=== PATIENT | female | born 1975 | race Caucasian/White ===

== ENCOUNTER 2020-07-25 16:02 | Emergency (ER) | payer OTHER, SELFPAY ==
--- NOTE | ~2020-07-25 | XR_ITS ---
XR chest 1V portable DATE: 07/25/2020 16:57 INDICATION: Cough, shortness of breath, congestion, nausea, headache TECHNIQUE: Portable AP chest on 07/25/2020 at 1654 hours COMPARISON: None FINDINGS: There are patchy infiltrates in the mid and especially lower lung zones bilaterally. No pleural effusion or pulmonary vascular congestion or pneumothorax. Normal heart size. IMPRESSION: Patchy bilateral mid and lower lung infiltrates suggesting bilateral pneumonia Reviewed, dictated and finalized at location [facility]. IMPRESSION: Patchy bilateral mid and lower lung infiltrates suggesting bilatera l pneumonia
[2020-07-25 16:12] VITALS: BP 138/79; PULSE 91; RESP 20; TEMP 37.9; O2SAT 97
--- NOTE | 2020-07-25 16:30 | ED.GENADULT ---
HPI - General Adult General Chief complaint: Upper Respiratory Infection <Poncho Mobley PA-C - Last Filed: 07/25/20 18:46> Stated complaint: sick for week, cough, sob <DHARMESH Lui Last Filed: 07/25/20 18:46> Time Seen by Provider: 07/25/20 16:09 <DHARMESH Lui Last Filed: 07/25/20 18:46> Source: patient and family <DHARMESH Lui Last Filed: 07/25/20 18:46> Mode of arrival: ambulatory <DHARMESH Lui Last Filed: 07/25/20 18:46> Limitations: no limitations <DHARMESH Lui Last Filed: 07/25/20 18:46> History of Present Illness HPI narrative: Patient is a 45-year-old female who presents to emergency department for evaluation of cough for the last week is productive with pleuritic chest pain and headache that occurs with coughing has had congestion and rhinorrhea had had these symptoms earlier in the month was tested for COVID and was negative her symptoms improved and then have recurred over the last week patient denies any known sick contacts patient has not been seen for this illness in the last week patient denies any sick contacts as noted. Patient denies tobacco abuse. Patient notes she has also had some loose stools with some mild abdominal discomfort <DHARMESH Lui Last Filed: 07/25/20 18:46> Related Data Home medications: Home Medications Medication Instructions Recorded Confirmed bupropion HCl PO 11/19/19 diclofenac sodium PO 11/19/19 ergocalciferol (vitamin D2) 11/19/19 [Vitamin D2] furosemide 11/19/19 losartan 11/19/19 meloxicam 11/19/19 methocarbamol mg 11/19/19 naltrexone mg 11/19/19 naproxen 11/19/19 norgestimate-ethinyl estradiol tablet 11/19/19 [Sprintec (28)] omeprazole 11/19/19 tramadol mg 11/19/19 <DHARMESH Lui Last Filed: 07/25/20 18:46> Allergies/adverse reactions: Allergies Allergy/AdvReac Type Severity Reaction Status Date / Time No Known Allergies Allergy Unknown Verified 07/25/20 16:46 <Poncho Mobley PA-C - Last Filed: 07/25/20 18:46> Review of Systems Review of Systems: All systems reviewed & are unremarkable except as noted in HPI and below <Poncho Mobley PA-C - Last Filed: 07/25/20 18:46> [facility] Past Medical History Medical History: Medical History (Updated 07/25/20 @ 18:42 by Poncho Mobley PA-C) Alcohol abuse Obesity <Poncho Mobley PA-C - Last Filed: 07/25/20 18:46> Social History Social History: Social History Alcohol intake: current Gender identity (if verbalized by the patient): Female <Poncho Mobley PA-C - Last Filed: 07/25/20 18:46> Exam Narrative: Exam Narrative: GENERAL:ill-appearing, obese, and in no acute distress. HEAD: Normocephalic, atraumatic. EYES: PERRLA and EOMI. ENT: Nares clear, no rhinorrhea or epistaxis. Mucous membranes moist. Oropharynx without tonsillar hypertrophy exudate or other lesions. CHEST: Clear to auscultation. No respiratory distress. No wheezing but crackles noted in the bilateral lung bases HEART: Regular rate and rhythm. No murmur heard. Normal peripheral pulses. ABDOMEN: Soft, nontender, nondistended. EXTREMITIES: Normal range of motion. No edema. SKIN: Warm, dry, no rash. NEURO: No focal deficits. Alert and oriented x3. PSYCH: Normal mood and affect. <Poncho Mobley PA-C - Last Filed: 07/25/20 18:46> Course Course Emergency Course: Patient in the room at this time resting comfortably aware of case findings treatment plan and diagnosis. Attempts were made to get in touch with the patient's primary care for concern of elevated transaminases and hyperglycemia was unable to do so. Will discharge patient home with plan for the patient to contact primary care tomorrow. Patient advised to self quarantining until she has her COVID-19 test results. Patient will be sent home on
[2020-07-25] MEDS: SODIUM CHLORIDE 0.9% IV 1,000 ML 999 ML IV CONT ×2 (16:40→17:46)
[2020-07-25 16:45] LABS: Basophils Percent Auto 0.6 % (0.2-1.2); Eosinophils Absolute Auto 0.1 K/mm3 (0-0.3); Hemoglobin 12.2 g/dL (12.0-15.0); Immature Granulocyte Absolute 0.03 K/mm3 (0.00-0.031); Immature Granulocyte Percent A 0.6 % (0-0.5); Lymphocytes Percent Auto 24.2 % (18.3-44.2); Mean Corpuscular Volume 90.9 fl (80-100); Mean Platelet Volume 10.8 fl (7.4-10.4); Monocytes Absolute Auto 0.4 K/mm3 (0.1-0.6); Monocytes Percent Auto 8.1 % (2.6-8.5); Neutrophils Absolute Auto 3.2 K/mm3 (1.3-6.7); Neutrophils Percent Auto 65.5 % (45.5-73.1); Platelet Count Result 231 k/mm3 (150-375); Red Blood Count 4.07 M/mm3 (4.2-5.4); Red Cell Distribution Width 14.1 % (11.5-14.5)
[2020-07-25 17:04] LABS: Lactic Acid Reflex 1.4 mmol/L (0.7-2.1)
[2020-07-25 17:06] LABS: Alanine Aminotransferase 184 U/L (4-35); Albumin Level 3.9 g/dL (3.5-5.1); Alkaline Phosphatase 135 U/L (38-126); Anion Gap 12 mmol/L (8-16); Aspartate Amino Transferase 254 U/L (14-36); Bilirubin,Total 1.1 mg/dL (0.2-1.3); Blood Urea Nitrogen 3 mg/dL (7-17); CRP 3.5 mg/dL (<1.0); Calcium 8.8 mg/dL (8.4-10.2); Carbon Dioxide 24 mmol/L (22-30); Chloride 95 mmol/L (98-107); Estimated CRCL calculation 177 ml/min; Estimated Glomerular Filt Rate > 60; Glucose 280 mg/dL (65-105); Potassium 3.8 mmol/L (3.4-5.0); Sodium 131 mmol/L (137-145)
[2020-07-25 17:22] VITALS: BP 123/64; PULSE 83; RESP 20; O2SAT 97
[2020-07-25 17:33] LABS: Ethanol < 10 mg/dL (<10)
[2020-07-25 17:39] LABS: Hemoglobin A1C 9.8 % (<5.7)
--- NOTE | 2020-07-25 17:48 | PC.NURSE ---
Patient asked for urine. Patient states she is unable to provide sample at this time. Refused straight cath. Call light within reach. Will notify this RN when she is able to provide urine sample.
[2020-07-25] MEDS: KETOROLAC 30 MG/ML VIAL (*BKC) IV PUSH (18:14)
[2020-07-25 18:19] VITALS: BP 113/67; PULSE 75; RESP 18; TEMP 37.8; O2SAT 96
[2020-07-25 19:05] LABS: Amphetamine Screen Urine Negative (Negative); Barbiturate Screen Urine Negative (Negative); Benzodiazepines Screen Urine Negative (Negative); Cannabinoid Screen Urine Negative (Negative); Cocaine Screen Urine Negative (Negative); Methadone Screen Urine Negative (Negative); Opiate Screen Urine Negative (Negative); Phencyclidine Screen Urine Negative (Negative)
[2020-07-26 17:02] LABS: SARS-CoV-2 RNA PCR Positive
== END 2020-07-25 19:02 | disposition home or self-care (01) ==
PROVIDERS: Emergency Medicine Emergency Medical Services; Emergency Provider Emergency Medicine; PCP Physician Assistant
DX: U07.1 COVID-19 (principal); J12.89 Other viral pneumonia; R79.89 Other specified abnormal findings of blood chemistry; R73.9 Hyperglycemia, unspecified
CPT/HCPCS: 36415; 71045; 80053; 80307; 82728; 83036; 83605; 85025; 86140; 87040; 87635; 96361; 96374; 96375; 99284; C9803; J0131; J1885; J7030; U0003

== ENCOUNTER 2020-08-22 09:53 | Emergency (ER) | payer OTHER, SELFPAY ==
--- NOTE | 2020-08-22 10:01 | ED.GENADULT ---
HPI - General Adult General Chief complaint: Skin/Abscess/Foreign Body Stated complaint: possible insect bite Time Seen by Provider: 08/22/20 10:01 Source: patient Mode of arrival: ambulatory Limitations: no limitations History of Present Illness HPI narrative: 45-year-old female patient presents to the [facility] with complaints of an insect bite to the right side of her back for the past 2 days. Patient states it is been very itchy and states that it is painful when she tries to wear a bra. Patient states that she called off work today due to the fact she could not wear a bra due to the pain. Patient states she is also has another area to the left side of the insect bite that also has her concerned. Patient denies any fevers, body aches or chills. Denies any chest pain, shortness of breath. Patient states she has been using some PRID on the areas. Related Data Home Medications Medication Instructions Recorded Confirmed bupropion HCl PO 11/19/19 furosemide 11/19/19 losartan 11/19/19 naltrexone mg 11/19/19 norgestimate-ethinyl estradiol tablet 11/19/19 [Sprintec (28)] sitagliptin [Januvia] 100 mg DAILY 08/22/20 08/22/20 Allergies Allergy/AdvReac Type Severity Reaction Status Date / Time No Known Allergies Allergy Unknown Verified 08/22/20 10:08 Review of Systems Review of Systems: Narrative: CONSTITUTIONAL: Denies fever, chills, or sweats. EYES: Denies visual changes, redness, or discharge. ENT: Denies rhinorrhea, congestion, sore throat, or otalgia. CARDIOVASCULAR: Denies chest pain, palpitations, or edema. RESPIRATORY: Denies cough or dyspnea. GASTROINTESTINAL: Denies abdominal pain, nausea, vomiting, or diarrhea. GENITOURINARY: Denies dysuria or hematuria. SKIN: Denies rash or itching. Positive insect bite and wound to the right side of the back x2 days. MUSCULOSKELETAL: Denies back pain, joint pain, or myalgia. NEUROLOGIC: Denies headache, numbness, or weakness. PSYCHIATRIC: Denies anxiety or depression. [facility] Past Medical History Medical History (Updated 08/22/20 @ 10:20 by JUAN Mercer) Alcohol abuse Arthritis Guo's cyst Right knee GERD (gastroesophageal reflux disease) Hypertension Obesity Surgical History Surgical History (Updated 08/22/20 @ 10:20 by JUAN Mercer) History of History of tubal ligation Social History Social History Alcohol intake: current Gender identity (if verbalized by the patient): Female Comments At the time of my signature I agree with nursing past medical history, surgical, social, and family history. There is no relevant family history pertinent to the presenting complaint. Exam Narrative: Exam Narrative: GENERAL: Well-appearing, well-nourished, and in no acute distress. HEAD: Normocephalic, atraumatic. EYES: PERRLA and EOMI. ENT: Nares clear, no rhinorrhea or epistaxis. Mucous membranes moist. NECK: Supple. No lymphadenopathy CHEST: Clear to auscultation. No respiratory distress. HEART: Regular rate and rhythm. No murmur heard. Normal peripheral pulses. ABDOMEN: Soft, nontender, nondistended, normal active bowel sounds. EXTREMITIES: Normal range of motion. No edema. SKIN: Warm, dry, no rash. Patient has approximately 1.5 cm insect bite with a punctate abdifatah in the middle of some surrounding erythema. There is no warmth present. There is no discharge present. Patient also has what appears to be a sebaceous cyst that measures approximately 1 cm to the left side of the insect bite. There is no punctate meng noted. No warmth noted. No tenderness noted on palpation. NEURO: No focal deficits. Alert and oriented x3. Course Vital Signs Vital signs: Vital Signs Temperature 36.8 C 08/22/20 10:02 Pulse Rate 74 08/22/20 10:02 Respiratory Rate 16 08/22/20 10:02 Blood Pressure 165/82 H 08/22/20 10:02 Pulse Oximetry 100 08/22/20 10:02 Temperature
[2020-08-22 10:02] VITALS: BP 165/82; PULSE 74; RESP 16; TEMP 36.8; O2SAT 100
== END 2020-08-22 10:20 | disposition home or self-care (01) ==
PROVIDERS: Emergency Provider Nurse Practitioner Family; PCP Physician Assistant
DX: S20.461A Insect bite (nonvenomous) of right back wall of thorax, initial encounter (principal); W57.XXXA Bitten or stung by nonvenomous insect and other nonvenomous arthropods, initial encounter; L72.3 Sebaceous cyst; M19.90 Unspecified osteoarthritis, unspecified site; K21.9 Gastro-esophageal reflux disease without esophagitis; I10 Essential (primary) hypertension; E66.9 Obesity, unspecified; Z68.35 Body mass index [BMI] 35.0-35.9, adult
CPT/HCPCS: 99212; G0463

== ENCOUNTER 2020-09-13 10:29 | Emergency (ER) | payer OTHER, SELFPAY ==
[2020-09-13 10:38] VITALS: BP 149/82; PULSE 86; RESP 20; TEMP 37.4; O2SAT 100
[2020-09-13 10:39] VITALS: BP 149/82; PULSE 86; RESP 20; TEMP 37.4; O2SAT 100
--- NOTE | 2020-09-13 11:04 | ED.ABDPAIN ---
HPI - Abdominal Pain General Chief Complaint: Abdominal Pain Stated Complaint: Abdominal Pain Source: patient Mode of arrival: ambulatory History of Present Illness HPI narrative: This is a 45-year-old [place] female that presented today complaining of left lower quadrant pain. According to patient she was diagnosed with COVID-19 in July. she noted that in July CT was completed that indicated what she describes as cholecystitis(inflamed gallbladder). Patient notes that associated symptoms is chills she also had episodes of diarrhea overnight. Patient denies that the pain radiates .she does deny nausea and notes that she has been afraid to eat anything so she did not experience vomiting it and noted that sharp pain to her left lower quadrant patient did note that she had not at home and the pain was not relieved. [facility] patient been accepted by Shannan Suarez. The patient denies SOB, CP, palpitation, extremity numbness, lightheadedness, dizziness, constipation, , chills, or fever. Patient also date retested for COVID-19 2 weeks after testing positive. Second Covid was negative. Patient does have a colonoscopy with the EGD scheduled for September. MD elicited complaint: abdominal pain (Left lower quadrant) Pain Consistency: intermittent Location: LLQ Severity: severe Related Data Home Medications Medication Instructions Recorded Confirmed bupropion HCl 150 mg PO BID 11/19/19 08/22/20 furosemide 20 mg DAILY 11/19/19 08/22/20 losartan 50 mg DAILY 11/19/19 08/22/20 naltrexone 50 mg DAILY 11/19/19 08/22/20 norgestimate-ethinyl estradiol 1 tablet DAILY 11/19/19 08/22/20 [Sprintec (28)] sitagliptin [Januvia] 100 mg DAILY 08/22/20 08/22/20 gabapentin 09/13/20 naproxen 09/13/20 Allergies Allergy/AdvReac Type Severity Reaction Status Date / Time No Known Allergies Allergy Unknown Verified 08/22/20 10:08 Review of Systems Review of Systems: All systems reviewed & are unremarkable except as noted in HPI and below (10 point review system) [facility] Past Medical History Medical History (Updated 09/13/20 @ 10:58 by JOSELYN Mott) Alcohol abuse Arthritis Guo's cyst Right knee GERD (gastroesophageal reflux disease) Hypertension Obesity Surgical History Surgical History (Updated 08/22/20 @ 10:20 by JUAN Mercer) History of History of tubal ligation Social History Social History Alcohol intake: current Gender identity (if verbalized by the patient): Female Exam Const: Orientation/consciousness: patient oriented x3 HENMT: Head: normal to inspection Eyes: Pupils: Equal, round and reactive pupils present Neck: Neck: normal visual inspection Chest: Chest palpation & inspection: normal inspection of the chest Resp: Effort & Inspection: normal respiratory effort Cardio: Rate: regular rate Rhythm: regular rhythm GI: GI Palp: Yes Tenderness to palpation present (GI) (Left lower quadrant) and Yes Guarding due to palpation present (GI) Auscultation: normal bowel sounds : General: Yes no CVA tenderness Back/Spine/Pelvis: Back: no CVA tenderness Skin: General skin exam: normal color Neuro: General: patient oriented x3 Extrem: General: normal to inspection Course Course Emergency Course: Patient transferred to [place] ED. physician Dr. Suarez. Patient will be transported via personal vehicle by her Vital Signs Vital signs: Vital Signs Temperature 99.3 F 09/13/20 10:38 Pulse Rate 86 09/13/20 10:38 Respiratory Rate 20 09/13/20 10:38 Blood Pressure 149/82 H 09/13/20 10:38 Pulse Oximetry 100 09/13/20 10:38 Temperature 99.3 F 09/13/20 10:39 Pulse Rate 86 09/13/20 10:39 Respiratory Rate 20 09/13/20 10:39 Blood Pressure 149/82 H 09/13/20 10:39 Pulse Oximetry 100 09/13/20 10:39 Discharge Plan Discharge Clinical Impression: Abdominal p
== END 2020-09-13 11:03 | disposition short-term general hospital (02) ==
PROVIDERS: Emergency Provider Nurse Practitioner
DX: R10.32 Left lower quadrant pain (principal); M19.90 Unspecified osteoarthritis, unspecified site; K21.9 Gastro-esophageal reflux disease without esophagitis; I10 Essential (primary) hypertension; E66.9 Obesity, unspecified; Z68.35 Body mass index [BMI] 35.0-35.9, adult; Z86.19 Personal history of other infectious and parasitic diseases
CPT/HCPCS: 99212; G0463

== ENCOUNTER 2020-09-13 11:26 | Emergency (ER) | payer OTHER, SELFPAY ==
--- NOTE | ~2020-09-13 | CT_ITS ---
EXAMINATION: CT abdomen pelvis wo con DATE: 09/13/2020 14:38 INDICATION: Left lower quadrant abdominal pain. Diarrhea. TECHNIQUE: Computed tomography (CT) of the abdomen and pelvis was performed without intravenous contr ast. Automated exposure control and iterative reconstruction technique were employed. Exam dose: 122 0.86 mGy-cm total exam DLP. COMPARISON: None. FINDINGS: There are minimal primarily peripheral infiltrates in the included lower lung zones. Normal heart size. No pericardial or pleural effusion. There is hepatomegaly and splenomegaly. No hepatic, splenic, pancreatic, adrenal or renal space-occup june mass lesion is detected. The gallbladder is present. No gallbladder wall thickening or perichole cystic fluid or fat stranding. No bile duct or pancreatic duct dilatation. No pancreatic calcificatio n. No urinary tract calculus or hydroureteronephrosis. Normal caliber of the abdominal aorta. No intraperitoneal or retroperitoneal or pelvic mass lesion or adenopathy or ascites. Approximately 3 cm right ovarian cystic lesion. The uterus, adnexal areas and urinary bladder are oth erwise unremarkable. There is diverticulosis of the sigmoid and descending colon. There is pericolic fat stranding near th e junction of the descending and sigmoid colon in the left lower quadrant of the abdomen, consistent with mild diverticulitis. There is no evidence of drainable abscess. No bowel obstruction or intraperitoneal free air is detected. Included skeletal structures are unremarkable. IMPRESSION: Diverticulitis at the junction of the descending and sigmoid colon in the left lower theresa drant 3 cm right ovarian cystic lesion; consider pelvic sonographic correlation Hepatomegaly and splenomegaly Reviewed, dictated and finalized at [facility]. Reviewed, dictated and finalized at location [facility]. IMPRESSION: Diverticulitis at the junction of the descending and sigmoid colon in the left lower quadrant 3 cm right ovarian cystic lesion; consider pelvic sonographic correlation Hepatomegaly and splenomegaly
[2020-09-13 11:30] VITALS: BP 146/100; PULSE 88; RESP 18; TEMP 36.3; O2SAT 100
[2020-09-13 12:01] LABS: Basophils Percent Auto 0.5 % (0.2-1.2); Eosinophils Absolute Auto 0.2 K/mm3 (0-0.3); Eosinophils Percent Auto 2.4 % (0-4.4); Hematocrit 33.6 % (37.0-47.0); Hemoglobin 11.3 g/dL (12.0-15.0); Immature Granulocyte Absolute 0.01 K/mm3 (0.00-0.031); Immature Granulocyte Percent A 0.2 % (0-0.5); Lymphocytes Percent Auto 22.6 % (18.3-44.2); Mean Corpuscular HGB Conc 33.6 g/dl (32-36); Mean Corpuscular Hemoglobin 30.5 pg (26-34); Mean Corpuscular Volume 90.6 fl (80-100); Mean Platelet Volume 9.1 fl (7.4-10.4); Monocytes Absolute Auto 0.5 K/mm3 (0.1-0.6); Neutrophils Absolute Auto 4.4 K/mm3 (1.3-6.7); Neutrophils Percent Auto 66.3 % (45.5-73.1); Platelet Count Result 193 k/mm3 (150-375); Red Blood Count 3.71 M/mm3 (4.2-5.4); Red Cell Distribution Width 15.3 % (11.5-14.5); White Blood Count 6.6 K/mm3 (4.5-10.0)
[2020-09-13 12:11] LABS: Add Urine Microscopic? YES; Appearance Urine Cloudy (Clear); Bacteria Urine Trace /hpf; Bilirubin Urine Negative (Negative); Blood Urine Negative (Negative); Color Urine Yellow (Yellow); Glucose Urine UA Negative (Negative); Ketones Urine Negative (Negative); Leukocyte Esterase Ur Negative LEU/UL (Negative); Mucus Urine Heavy /lpf; Nitrate Urine Negative (Negative); Protein Urine Negative (Negative); RBC Urine 0-2 /hpf (0-2); Specific Grav Ur 1.021 (1.001-1.035); Squamous Epithelial Cell Urine Many /hpf (Few); Urobilinogen Urine Negative mg/dL (<2.0)
[2020-09-13 12:16] LABS: Alanine Aminotransferase 43 U/L (4-35); Albumin Level 4.1 g/dL (3.5-5.1); Alkaline Phosphatase 81 U/L (38-126); Anion Gap 12 mmol/L (8-16); Aspartate Amino Transferase 72 U/L (14-36); Bilirubin,Total 1.3 mg/dL (0.2-1.3); Blood Urea Nitrogen 5 mg/dL (7-17); Calcium 8.7 mg/dL (8.4-10.2); Carbon Dioxide 25 mmol/L (22-30); Chloride 100 mmol/L (98-107); Estimated CRCL calculation 149 ml/min; Estimated Glomerular Filt Rate > 60; Glucose 151 mg/dL (65-105); Lipase 98 U/L (23-300); Potassium 3.7 mmol/L (3.4-5.0); Sodium 137 mmol/L (137-145)
[2020-09-13] MEDS: DICYCLOMINE HCL INJ 20 MG/2 ML VIAL IM (12:44)
--- NOTE | 2020-09-13 13:02 | ED.ABDPAIN ---
HPI - Abdominal Pain General Chief Complaint: Abdominal Pain Stated Complaint: abd pain Time Seen by Provider: 09/13/20 11:50 Source: patient Mode of arrival: ambulatory Limitations: no limitations History of Present Illness HPI narrative: 45-year-old female She had Covid about 8 weeks ago but is subsequently recovered and tested negative She has been having problems for a while with abdominal pain, has seen her PCP, and is supposed to be getting a abdominal ultrasound to check her gallbladder as well as a colonoscopy in the upcoming days She comes in today because of pain in her left lower quadrant which originally felt like gas but then spread a little bit to more extensively to the suprapubic area and so came in to get checked She does not have a fever she does not have vomiting or diarrhea and she does not have dysuria or hematuria Her last period was 2 weeks ago and she says she has had her tubes tied and is very skeptical about the possibility of a She cannot think of anything which exacerbated her pain other than having it pushed on or which is relieved it No other abdominal operations Related Data Home Medications Medication Instructions Recorded Confirmed bupropion HCl 150 mg PO BID 11/19/19 08/22/20 furosemide 20 mg DAILY 11/19/19 08/22/20 losartan 50 mg DAILY 11/19/19 08/22/20 naltrexone 50 mg DAILY 11/19/19 08/22/20 norgestimate-ethinyl estradiol 1 tablet DAILY 11/19/19 08/22/20 [Sprintec (28)] sitagliptin [Januvia] 100 mg DAILY 08/22/20 08/22/20 gabapentin 09/13/20 naproxen 09/13/20 Allergies Allergy/AdvReac Type Severity Reaction Status Date / Time No Known Allergies Allergy Unknown Verified 09/13/20 11:55 Review of Systems Review of Systems: All systems reviewed & are unremarkable except as noted in HPI and below Constitutional: Constitutional: Denies chills, Denies fatigue, Denies fever(s), Denies headache(s) and Denies weakness Eyes: Eyes: Denies change in vision and Denies other visual disturbances ENT: Denies headache(s), Denies epistaxis, Denies nasal congestion and Denies sore throat Cardiovascular: Cardiovascular: Denies chest pain, Denies leg edema, Denies palpitations and Denies dyspnea Respiratory: Respiratory: Denies cough, Denies dyspnea and Denies wheezing Gastrointestinal: Gastrointestinal: Reports abdominal pain, Denies constipation, Denies diarrhea, Denies nausea and Denies vomiting Genitourinary: Genitourinary: Denies hematuria, Denies urinary frequency and Denies dysuria Musculoskeletal: Musculoskeletal: Denies deformity, Denies arthralgias, Denies joint swelling, Denies muscle weakness and Denies numbness Integumentary/Breasts: Skin/Breast: Denies rash, Denies unusual bruising and Denies wounds Neurologic: Denies Abnormal speech present, Denies headache(s), Denies focal weakness, Denies numbness and Denies weakness Psychiatric: Psychiatric: Reports no additional psychiatric complaints Endocrine: Endocrine: Denies fatigue and Denies palpitations Hematologic/Lymphatic: Hematologic/Lymphatic: Denies easy bleeding and Denies easy bruising Allergic/Immunologic: Allergic/Immunologic: Denies wheezing PMFSH Past Medical History Medical History (Updated 09/13/20 @ 15:17 by Dutch Pal MD) Alcohol abuse Arthritis Guo's cyst Right knee GERD (gastroesophageal reflux disease) Hypertension Obesity Surgical History Surgical History (Updated 08/22/20 @ 10:20 by JUAN Mercer) History of History of tubal ligation Social History Social History Alcohol intake: current Gender identity (if verbalized by the patient): Female Exam Const: General: healthy appearing, no acute distress, well developed and awake Nutritional Appearance: well nourished Orientation/consciousness: patient oriented x3 (alert) Limitations: no limitations HENMT: Head: normocephalic and atrauma
[2020-09-13 15:00] VITALS: BP 144/88; PULSE 86; RESP 18; O2SAT 100
== END 2020-09-13 16:00 | disposition home or self-care (01) ==
PROVIDERS: Emergency Medicine; Emergency Provider Emergency Medicine
DX: K57.32 Diverticulitis of large intestine without perforation or abscess without bleeding (principal); M19.90 Unspecified osteoarthritis, unspecified site; K21.9 Gastro-esophageal reflux disease without esophagitis; I10 Essential (primary) hypertension; E66.9 Obesity, unspecified; Z68.35 Body mass index [BMI] 35.0-35.9, adult; N83.201 Unspecified ovarian cyst, right side; R16.2 Hepatomegaly with splenomegaly, not elsewhere classified
CPT/HCPCS: 36415; 74176; 80053; 81001; 81025; 83690; 85025; 96372; 99284; J0500

== ENCOUNTER 2021-06-05 08:30 | Emergency (ER) | payer OTHER, SELFPAY ==
[2021-06-05 08:39] VITALS: BP 148/99; PULSE 97; RESP 16; TEMP 36.7; O2SAT 100
--- NOTE | 2021-06-05 09:00 | ED.EAR ---
HPI - Ear Problem General Chief complaint: Ear Stated complaint: Left Ear Pain Source: patient and RN notes reviewed Limitations: no limitations History of Present Illness HPI Narrative: The obese patient, on several meds including diabetes, presents with left ear discomfort. Patient states she has been seen by the ED and ENT after foreign body. She reports that she had an insect in her ear which was partially removed, was referred to ENT for retained foreign body and placed on antibiotics Augmentin, Cortisporin otic. She was been seen again by ED for increasing discomfort and discharge-and felt to have associated TM perforation. She denies fever, facial numbness/weakness; but she has developed a mild rash on her trunk and extremities . Patient advised will not attempt another foreign body removal due to complicated history; and, to stop current antibiotic because of rash and will provide different antibiotics. Patient advised to follow-up with [facility] if not improved. Related Data Home Medications Medication Instructions Recorded Confirmed bupropion HCl 150 mg PO BID 11/19/19 08/22/20 furosemide 20 mg DAILY 11/19/19 08/22/20 losartan 50 mg DAILY 11/19/19 08/22/20 naltrexone 50 mg DAILY 11/19/19 08/22/20 norgestimate-ethinyl estradiol 1 tablet DAILY 11/19/19 08/22/20 [Sprintec (28)] sitagliptin [Januvia] 100 mg DAILY 08/22/20 08/22/20 gabapentin 09/13/20 naproxen 09/13/20 Allergies Allergy/AdvReac Type Severity Reaction Status Date / Time No Known Allergies Allergy Unknown Verified 09/13/20 11:55 Review of Systems Review of Systems: Narrative: General/Constitutional: No weight loss,fever Eyes: N0: Redness,discharge Ears/Nose/Throat: No: Epistaxis, REPORTS ear discharge Respiratory: Denies: Hemoptysis Gastrointestinal: No Vomiting, Bleeding-rectal Skin: No Lumps, eruption Neurologic: No Focal Weakness,Sz Hematologic: Denies: Petechiae/Purpura Psychiatric: No: Suicida ideationl All Other Systems: Reviewed and Negative [facility] Past Medical History Medical History (Updated 06/13/21 @ 10:21 by Shashi Hopkins MD) Alcohol abuse Arthritis Guo's cyst Right knee GERD (gastroesophageal reflux disease) Hypertension Obesity Surgical History Surgical History (Updated 08/22/20 @ 10:20 by JUAN Mercer) History of History of tubal ligation Social History Social History Alcohol intake: current Gender identity (if verbalized by the patient): Female Comments At time of signature, agree with nursing past medical, surgical, social and family history. There is no relevant family history pertinent to the presenting complaint Exam Narrative: Exam Narrative: General Appearance: Overweight/well nourished, No distress EYE: PERRLA, EOMI Ears: Right external ear normal, Auditory canal normal; left TM obscured by FB, EAC with mucopus Nose: Normal nose, Nares clear Mouth/Throat: Normal appearing, Normal lips Neck: Supple, No adenopathy Respiratory: Airway patent, No respiratory distress Skin: Warm, Dry; micropapular eruption on trunk and extremities Neurological: A&O x3, CN II-X intact Psychiatric: Normal mood, Normal affect Course Vital Signs Vital signs: Vital Signs Temperature 98.0 F 06/05/21 08:39 Pulse Rate 97 06/05/21 08:39 Respiratory Rate 16 06/05/21 08:39 Blood Pressure 148/99 H 06/05/21 08:39 Pulse Oximetry 100 06/05/21 08:39 Temperature 98.0 F 06/05/21 08:39 Pulse Rate 97 06/05/21 08:39 Respiratory Rate 16 06/05/21 08:39 Blood Pressure 148/99 H 06/05/21 08:39 Pulse Oximetry 100 06/05/21 08:39 Medical Decision Making Vital Signs Vital Signs: Vital Signs Temperature 98.0 F 06/05/21 08:39 Pulse Rate 97 06/05/21 08:39 Respiratory Rate 16 06/05/21 08:39 Blood Pressure 148/99 H 06/05/21 08:39 Pulse Oximetry 100 06/05/21 08:39
== END 2021-06-05 09:22 | disposition home or self-care (01) ==
PROVIDERS: Emergency Provider Emergency Medicine
DX: H60.502 Unspecified acute noninfective otitis externa, left ear (principal); L73.9 Follicular disorder, unspecified; M19.90 Unspecified osteoarthritis, unspecified site; K21.9 Gastro-esophageal reflux disease without esophagitis; I10 Essential (primary) hypertension; E66.9 Obesity, unspecified; Z68.37 Body mass index [BMI] 37.0-37.9, adult; E11.9 Type 2 diabetes mellitus without complications
CPT/HCPCS: 99213; G0463

== ENCOUNTER 2021-07-08 09:16 | Emergency (ER) | payer OTHER, SELFPAY ==
[2021-07-08 09:27] VITALS: BP 154/97; PULSE 78; RESP 16; TEMP 36.4; O2SAT 100
--- NOTE | 2021-07-08 09:38 | ED.GENADULT ---
HPI - General Adult General Chief complaint: Ear Stated complaint: ear infection Time Seen by Provider: 07/08/21 09:39 Source: patient and RN notes reviewed Mode of arrival: ambulatory Limitations: no limitations History of Present Illness HPI narrative: 46-year-old ([place] and female) presents with complaints of left otalgia, intermittent dizziness and headache (not the worst of her life) for the past 4 days. Mandie reports increasing LT ear pain and pressure and DEL VALLE over the past 48 hours with yellow drainage over the past 24 hours. Naproxen with little relief. History of rupture LT eardrum with foreign body removal and has had several ear infections afterwards needing antibiotic treatments. Denies new decreased hearing or tinnitus. Denies new injury to ear. No rhinorrhea and nasal congestion. Denies cough. No high fevers or chills. Denies nausea and vomiting. LMP 2 weeks ago. Remains active. The patient reports she was diagnosed with COVID-19 in 2019 not sure of date. The patient reports she received 2 Pfizer COVID-19 vaccines. The patient reports she is not waiting for the results of a COVID-19 lab test. The patient reports she does not have weakness, fatigue, or myalgia. The patient reports she does not have a new or worsening cough or shortness of breath. The patient reports she does not have any loss of taste or smell, sore throat, abdominal pain, and diarrhea. Denies recent traveling. Denies concerns for COVID-19 or exposures. At this time, the patient is not suspected of having COVID-19. Some parts of this dictation were generated by voice recognition software and may contain typographical and/or grammatical inaccuracies. Related Data Home Medications Medication Instructions Recorded Confirmed bupropion HCl 150 mg PO BID 11/19/19 07/08/21 furosemide 20 mg PO DAILY 11/19/19 07/08/21 losartan 50 mg PO DAILY 11/19/19 07/08/21 naltrexone 50 mg PO DAILY 11/19/19 07/08/21 norgestimate-ethinyl estradiol 1 tablet PO DAILY 11/19/19 07/08/21 [Sprintec (28)] sitagliptin [Januvia] 100 mg PO DAILY 08/22/20 07/08/21 gabapentin 100 mg PO DIRECTED 09/13/20 naproxen 500 mg PO DAILY 09/13/20 07/08/21 Allergies Allergy/AdvReac Type Severity Reaction Status Date / Time No Known Allergies Allergy Unknown Verified 07/08/21 09:19 Review of Systems Review of Systems: CONSTITUTIONAL: Denies fever, chills, sweats. EYES: Denies visual changes, redness, discharge. ENT: Denies sore throat, rhinorrhea, congestion. Complaints of LT otalgia, ear drainage. CARDIOVASCULAR: Denies chest pain, palpitations, edema. RESPIRATORY: Denies dyspnea, wheezing, cough. GASTROINTESTINAL: Denies abdominal pain, nausea, vomiting, diarrhea. GENITOURINARY: Denies dysuria, hematuria, abnormal discharge. SKIN: Denies rash or itching. MUSCULOSKELETAL: Denies acute back pain, joint pain, or myalgia. NEUROLOGIC: Denies numbness or focal weakness. Complaints of intermittent dizziness, DEL VALLE. PSYCHIATRIC: Denies anxiety or depression. All systems reviewed & are unremarkable except as noted in HPI and below. [facility] Past Medical History Medical History Alcohol abuse Arthritis Guo's cyst Right knee GERD (gastroesophageal reflux disease) Hypertension Obesity Surgical History Surgical History History of History of tubal ligation Family History Family History (Updated 07/08/21 @ 09:46 by JUAN Culp) Father Heart disease Mother Kidney failure Social History Social History (Updated 07/08/21 @ 10:20 by JUAN Culp) Smoking status: Never smoker Tobacco type: cigarettes Second hand tobacco smoke exposure: No Alcohol intake: current Substance use: never Substance use type: does not use Living arrangements: with family Occupation/Education:
== END 2021-07-08 09:57 | disposition home or self-care (01) ==
PROVIDERS: Emergency Provider Nurse Practitioner Family; PCP Physician Assistant
DX: H66.3X2 Other chronic suppurative otitis media, left ear (principal); I10 Essential (primary) hypertension; Z79.1 Long term (current) use of non-steroidal anti-inflammatories (NSAID)
CPT/HCPCS: 99213; G0463

== ENCOUNTER 2021-11-07 13:53 | Emergency (ER) | payer OTHER, SELFPAY ==
[2021-11-07 14:01] VITALS: BP 148/99; PULSE 109; RESP 16; TEMP 37.2; O2SAT 100
--- NOTE | 2021-11-07 14:02 | ED.GENADULT ---
HPI - General Adult General Chief complaint: Urogenital-Female Stated complaint: eye irritation/pos uti Source: patient Mode of arrival: ambulatory Limitations: no limitations History of Present Illness HPI narrative: Patient is a 46 y/o CF who presents to the [facility] via POV for an evaluation of skin and urinary problem that has been present for 2 days. Additionally, she reports constantly rubbing her left eye which has caused surrounding skin to be erythematous, swollen, and abraded. She also reports dark, orange malodorous urine, left lower denies past abdominal medical history. Pertinent negatives fever, chills, sweats, malaise, poor p.o. intake, change in appetite, recent weight loss, lymphadenopathy, headache, sore throat, dizziness, LOC, urinary sxs, back/flank pain, extremity paresthesias, blood in stool, nausea, vomiting, diarrhea, constipation, belching, bloating, dry mouth, heartburn, jaundice, vomiting blood, and testicular pain., And left flank pain that has been present for 2 days as well. Denies taking meds for any symptoms. Nothing improves or worsen symptoms. She also reports a history of diverticulitis. She also reports she drinks socially on the weekends and participated in heavy drinking over the past few days while attending [employer]. She also reports gallbladder issues that produces generalized abdominal pain. She has followed up with her stone driller who she says may eventually remove her gallbladder. Of note, she states she has chronic diarrhea which is also being managed by her stone driller. Related Data Home Medications Medication Instructions Recorded Confirmed bupropion HCl 150 mg PO BID 11/19/19 11/07/21 furosemide 20 mg PO DAILY 11/19/19 11/07/21 losartan 50 mg PO DAILY 11/19/19 11/07/21 naltrexone 50 mg PO DAILY 11/19/19 11/07/21 norgestimate-ethinyl estradiol 1 tablet PO DAILY 11/19/19 11/07/21 [Sprintec (28)] sitagliptin [Januvia] 100 mg PO DAILY 08/22/20 11/07/21 gabapentin 100 mg PO DIRECTED 09/13/20 11/07/21 Allergies Allergy/AdvReac Type Severity Reaction Status Date / Time No Known Allergies Allergy Unknown Verified 11/07/21 14:04 Review of Systems Review of Systems: Denies injury. Pertinent negatives fever, chills, sweats, malaise, poor p.o. intake, change in appetite, malaise, recent weight loss, myalgias, headache,dizziness, STD exposure, painful intercourse, constipation, nausea, vomiting, dysuria, hematuria, urinary frequency, urinary urgency, urinary incontinence, vaginal problems, LOC, dizziness, streaking, drainage, numbness, tingling, loss of sensation, foreign body sensation, deformity, sob, chest pain, and heart palpitations/murmurs. [facility] Past Medical History Medical History Alcohol abuse Arthritis Guo's cyst Right knee GERD (gastroesophageal reflux disease) Hypertension Obesity Surgical History Surgical History History of History of tubal ligation Family History Family History Father Heart disease Mother Kidney failure Social History Social History Smoking status: Never smoker Tobacco type: cigarettes Second hand tobacco smoke exposure: No Alcohol intake: current Substance use: never Substance use type: does not use Gender identity (if verbalized by the patient): Female Sexual Orientation (if Verbalized by the Patient): Straight or Heterosexual Comments I have reviewed and agree with the patient's past medical, surgical, social, and family hx as documented by the RN. There is no relevant family history pertinent to the presenting complaint. Exam Narrative: GENERAL: Well-appearing, well-nourished, and in no acute distress. HEAD: Normocephalic, atraumat
== END 2021-11-07 15:05 | disposition left against medical advice (07) ==
PROVIDERS: Emergency Provider Nurse Practitioner Family; PCP Physician Assistant
DX: N39.0 Urinary tract infection, site not specified (principal); L03.211 Cellulitis of face; M19.90 Unspecified osteoarthritis, unspecified site; K21.9 Gastro-esophageal reflux disease without esophagitis; I10 Essential (primary) hypertension; E66.9 Obesity, unspecified; Z68.33 Body mass index [BMI] 33.0-33.9, adult
CPT/HCPCS: 81003; 87086; 99213; G0463

== ENCOUNTER 2022-02-16 07:32 | Outpatient (CLI) | payer OTHER, SELFPAY ==
[2022-02-16 08:06] LABS: Anion Gap 6 mmol/L (8-16); Blood Urea Nitrogen 11 mg/dL (7-17); Calcium 8.6 mg/dL (8.4-10.2); Carbon Dioxide 26 mmol/L (22-30); Chloride 101 mmol/L (98-107); Estimated Glomerular Filt Rate > 60; Glucose 174 mg/dL (65-110); Potassium 3.8 mmol/L (3.4-5.0); Sodium 133 mmol/L (137-145)
== END 2022-02-16 07:33 | disposition home or self-care (01) ==
LOC: ANHSURGERY 07:36
PROVIDERS: PCP Physician Assistant; Visit Provider Plastic Surgery
DX: Z01.818 Encounter for other preprocedural examination (principal); E11.9 Type 2 diabetes mellitus without complications
CPT/HCPCS: 36415; 80048

== ENCOUNTER 2022-02-21 00:47 | Day surgery (SDC) | payer OTHER, SELFPAY ==
--- NOTE | 2022-02-09 14:58 | PC.NURSE ---
Report to the Outpatient Waiting Room, entrance under the green pavilion located off [facility], at time 0600 on date ___02/21/22____. OR Time: . - You and your visitor will be asked a series of questions to screen for COVID 19 for your protection. - A mask is required within the hospital. Preoperative COVID Testing Requirements: No COVID Test needed if: (proof is required; if not received patient will have Rapid Test prior to entry) - Patient has received COVID Vaccine at least 14 days prior to procedure date or - Patient has positive COVID test result within last 90 days of surgery date. COVID Test needed if above criteria is not met If not COVID vaccinated a COVID test must be conducted within 72 hours of surgery and patient is asked to isolate self from time of testing until procedure. You will go to the [facility] for your COVID testing. The [facility] is located at the corner of [address] [facility]. You will only be called if COVID results are positive and your surgeon may reschedule your elective surgery date. Patients may have clear liquids (water, carbonated beverages, clear teas, apple juice) until 3 hours prior to surgery with a maximum of 20 ounces. - No food from midnight until time of surgery - Infants may have breast milk until 4 hours before surgery, infant formula 6 hours prior to surgery. - Children will be allowed to drink immediately following surgery. If applicable, please bring a bottle or sippy cup to assist with drinking. Juice, water, soda, and popsicles are readily available. For infants on formula, please bring formula the day of surgery. Pacifiers are allowed. Take the following medications with a SIP of water the morning of surgery: ___ALBUTEROL, BUPROPRION, GABAPENTIN Medications to discontinue per physician NONE Date to take last dose Please no make-up, nail bahamian, hairspray, perfume, deodorant, or body powder the day of surgery. No jewelry (including any body piercings) or valuables the day of surgery, leave them at home. Please take a shower or bath the night before, or the morning of, surgery with an antibacterial soap. Wear comfortable, loose fitting clothing. Children are encouraged to wear pajamas. - Jewelry must be removed prior to entering the operating room. Rings and piercings that are not removed may be cut off. - The hospital will not accept responsibility for valuables. - Please leave all valuables, including medications, at home the day of surgery. If you are going home after surgery, a licensed refuse driver must drive you home. - NO public transportation without another adult. - We recommend that an adult stay with you for 24 hours following discharge. - We also recommend that you do not drive, make important decision, drink alcoholic beverages, or take any drugs that were not prescribed by your health care provider for at least 24 hours after your discharge time. For Pediatric surgeries, we recommend two adults accompany the child home (only one inside the building at this time). One visitor will be allowed to accompany the patient into the hospital. Patients visitor will be instructed to remain with patient at all times or leave the building. We will allow the visitor to come back to the postoperative area when patient is ready. Follow any additional instructions given to you from your surgeon. Telephone instructions given to PATIENT____and asked if any additional questions and then verbalized understanding. Patient advised to call surgeon office or pre surgery nurse liaison [phone] if any additional questions.
[2022-02-09 15:08] VITALS: BMI 32.4
--- NOTE | 2022-02-09 15:13 | PC.NURSE ---
PT WAS IN A HURRY, DIDNT WANT TO LISTEN TO INSTRUCTIONS, ATTEMPTED TO REVIEW INSTRUCTIONS, PT ASKED TO BE FAXED. EXPLAINED SHE WOULD GET A PRINTED INSTRUCTION SHEET WHEN SHE COMES IN FOR PRE OP LAB WORK. PT ENDED CONVERSATION
[2022-02-21] MEDS: LACTATED RINGERS 1,000 ML 30 ML IV CONT (06:24)
[2022-02-21 06:29] LABS: Glucose Point of Care 148 mg/dl (65-105)
--- NOTE | 2022-02-21 07:14 | WPDHPUPDATE1 ---
History and Physical Update Update Date/Time: 02/21/22 07:14 History and Physical has been reviewed, including an updated exam of the patient. There are NO changes in the patient's condition. Risks, benefits, and alternatives have been discussed and questions answered. Patient agrees to proceed with procedure.
--- NOTE | 2022-02-21 07:15 | P.PNAN_ITS ---
Anes - Initial Pre Proc Eval Procedure: Operation Date: 02/21/22 07:30 Proposed Procedures p Left Open Carpal Tunnel Release - Edy Willingham MD Date/Time: 02/21/22 07:15 Surgeon: Edy Willingham MD Pre Op Diagnosis: left carpal tunnel syndrome Patient Data Age: 46 Gender: F Height: 1.7 m Weight: 94 kg Allergies Allergy/AdvReac Type Severity Reaction Status Date / Time No Known Allergies Allergy Unknown Verified 02/21/22 06:02 Home Medications Medication Instructions Recorded Confirmed Type bupropion HCl 150 mg PO BID 11/19/19 02/09/22 History furosemide 20 mg PO DAILY 11/19/19 02/09/22 History losartan 50 mg PO DAILY 11/19/19 02/09/22 History naltrexone 50 mg PO DAILY 11/19/19 02/09/22 History norgestimate-ethinyl estradiol 1 tablet PO DAILY 11/19/19 02/09/22 History [Sprintec (28)] albuterol sulfate 4 puff INHALATION QID PRN #6.7 gm 07/25/20 02/09/22 Rx metformin 500 mg PO DAILY #10 tablet 07/25/20 02/09/22 Rx sitagliptin [Januvia] 100 mg PO DAILY 08/22/20 02/09/22 History gabapentin 100 mg PO DIRECTED 09/13/20 02/09/22 History Laboratory Tests 02/21/22 06:26 POC Capillary Glucose 148 mg/dl H mg/dl (65-105) Patient hx anesthesia problems: none Family hx anesthesia problems: none Results Review: All pre-operative results and documents have been reviewed as part of the pre-operative evaluation. [facility] Past Medical History Medical History Alcohol abuse Arthritis Guo's cyst Right knee GERD (gastroesophageal reflux disease) Hypertension Obesity Surgical History Surgical History History of History of tubal ligation Family History Family History Father Heart disease Mother Kidney failure Social History Social History Smoking status: Never smoker Tobacco type: cigarettes Second hand tobacco smoke exposure: No Alcohol intake: current Drinks per week: 15 Substance use: never Substance use type: does not use Living arrangements: with family Gender identity (if verbalized by the patient): Female Sexual Orientation (if Verbalized by the Patient): Straight or Heterosexual Spiritual care concerns: No Anes - Eval Final PreProcedure Day of Procedure 02/21/22 07:15 Patient weight: obese Heart: regular rate and rhythm Lungs: clear to auscultation Airway: Mallampati scale class II Neurological: alert and oriented Last oral intake: >/= 8 hours ASA classification: III Emergent: no Anesthetic plan: proceed Anesthesia type and monitoring: general GIVS and standard monitoring Results Review: All pre-operative results and documents have been reviewed as part of the pre-operative evaluation. Informed Consent: The patient's anesthetic plan and its attendant risks and benefits were discussed with the patient/family/POA. Questions were solicited and answers provided to the satisfaction of the patient/family/POA.
[2022-02-21 07:27] VITALS: BP 140/77; PULSE 76; RESP 16; TEMP 36.6; O2SAT 100
[2022-02-21] MEDS: LIDO 1%/EPINEPHRINE/PF 1:200,000 30 ML VIAL XX (08:00)
--- NOTE | 2022-02-21 08:03 | W.PM.PROC2 ---
Procedure Note - Detailed Date of Procedure 02/21/22 Pre-op Diagnosis left carpal tunnel syndrome Post-op Diagnosis Same Procedure Performed Left open carpal tunnel release Surgeon Edy Willingham MD Anesthesia MAC Description of Procedure The left carpal tunnel area was marked on the patient in the holding area. She was rolled to the operating room and placed supine on the operating table. She was given IV sedation and the left upper extremity was prepped and draped in usual fashion. A time-out was held and confirmed. The site was locally infiltrated with 1% lidocaine with epinephrine. The tourniquet was inflated to 250 mmHg. The incision was made as marked and dissection was carried bluntly through the subcutaneous tissue to the palmar aponeurosis. This was incised with a 15 blade revealing the the transverse retinaculum and palmaris brevis muscle. The canal was opened and the muscle was divided with a 15 blade.. There was no unusual anatomy noted. A complete release was performed. The skin wound was then closed with interrupted 5 0 nylon. The tourniquet was released prior to closure. Usual bandage was applied and she was discharged from the operating room stable condition Estimated Blood Loss 1 Drains No Packing No Pathology None sent Complications No immediate complications Condition Stable Disposition Same day
[2022-02-21 08:04] LABS: Glucose Point of Care 137 mg/dl (65-105)
[2022-02-21 08:05] VITALS: BP 119/65; PULSE 77; RESP 14; O2SAT 97
[2022-02-21 08:35] VITALS: BP 140/71; PULSE 62; RESP 14
== END 2022-02-21 08:55 | disposition home or self-care (01) ==
PROVIDERS: PCP Physician Assistant; Visit Provider Plastic Surgery
PROC: (CPT 64721; principal; 2022-02-21 07:30)
DX: G56.02 Carpal tunnel syndrome, left upper limb (principal); I10 Essential (primary) hypertension; K21.9 Gastro-esophageal reflux disease without esophagitis; E66.9 Obesity, unspecified; Z68.34 Body mass index [BMI] 34.0-34.9, adult; Z79.51 Long term (current) use of inhaled steroids; Z79.84 Long term (current) use of oral hypoglycemic drugs
CPT/HCPCS: 64721; 82948; A9270; J1100; J2250; J2405; J2704; J3010; J7120

== ENCOUNTER 2022-04-13 09:58 | Emergency (ER) | payer OTHER, SELFPAY ==
--- NOTE | ~2022-04-13 | XR_ITS ---
EXAMINATION: XR knee LT min 4V DATE: 04/13/2022 10:43 INDICATION: Left knee and calf pain. TECHNIQUE: 4 views of left knee were obtained. COMPARISON: None. FINDINGS: Bone alignment is normal. No fracture. There is mild tricompartmental osteoarthritis charac terized by marginal osteophytes. No joint space narrowing. No knee joint effusion. IMPRESSION: 1. Mild left knee osteoarthritis. Reviewed, dictated and finalized at location A.
--- NOTE | ~2022-04-13 | US_ITS ---
EXAMINATION: US venous doppler [facility] DATE: 04/13/2022 11:04 INDICATION: Left calf pain. TECHNIQUE: Grayscale ultrasound images without and with compression and Doppler ultrasound images of the left lower extremity veins were obtained. COMPARISON: None. FINDINGS: The visualized portions of left common femoral vein, profunda (deep) femoral vein, femoral vein, popl iteal vein, peroneal veins, posterior tibial veins, and greater saphenous vein outflow are patent. Th ere is a 5.0 x 2.6 x 0.7 cm Guo's cyst. IMPRESSION: 1. No deep venous thrombosis. 2. Large Guo's cyst. Reviewed, dictated and finalized at location A.
[2022-04-13 10:00] VITALS: BP 150/106; PULSE 80; RESP 18; TEMP 36; O2SAT 100
--- NOTE | 2022-04-13 10:27 | PC.NURSE ---
EDP at bedside to assess pt.
--- NOTE | 2022-04-13 10:38 | PC.NURSE ---
Patient off unit to radiology.
--- NOTE | 2022-04-13 10:53 | ED.GENADULT ---
HPI - General Adult General Chief complaint: Extremity Injury, Lower Stated complaint: left leg pain Time Seen by Provider: 04/13/22 10:18 Source: patient Mode of arrival: ambulatory Limitations: no limitations History of Present Illness HPI narrative: Patient is a 46-year-old female who presents to the ED with report of left posterior knee and calf pain. Patient reports a history of Guo's cyst and arthritis in her right knee. She has been undergoing physical therapy @ [facility] for her right knee pain/arthritis for the last 4 weeks but was recently given be okay to return to work. She worked her first 10 hour shift 3 days ago and since then has had pain in her left posterior knee and calf. She states the pain keeps her up at night. She has been taking ibuprofen and naproxen at home for the pain. She has not taken anything for pain today. She states she was unable to get in to see her physical therapist today, which prompted her to come to the ED. States pain is worse with full extension and walking. Denies any wounds, LLE swelling, fever, chills, chest pain, difficulty breathing. Related Data Home Medications Medication Instructions Recorded Confirmed bupropion HCl 150 mg tablet,12 hr 150 mg PO BID 11/19/19 02/09/22 sustained-release furosemide 20 mg tablet 20 mg PO DAILY 11/19/19 02/09/22 losartan 50 mg tablet 50 mg PO DAILY 11/19/19 02/09/22 naltrexone 50 mg tablet 50 mg PO DAILY 11/19/19 02/09/22 norgestimate 0.25 mg-ethinyl 1 tablet PO DAILY 11/19/19 02/09/22 estradiol 35 mcg tablet (Sprintec (28)) sitagliptin 100 mg tablet (Januvia) 100 mg PO DAILY 08/22/20 02/09/22 gabapentin 100 mg capsule 100 mg PO DIRECTED 09/13/20 02/09/22 Allergies Allergy/AdvReac Type Severity Reaction Status Date / Time No Known Allergies Allergy Unknown Verified 04/13/22 10:24 Review of Systems Review of Systems: CONSTITUTIONAL: Denies fever, chills. CARDIOVASCULAR: Denies chest pain or edema in LLE. RESPIRATORY: Denies dyspnea. GASTROINTESTINAL: Denies abdominal pain, nausea, vomiting. SKIN: Denies wounds. MUSCULOSKELETAL: Reports L posterior knee/calf pain. Denies back pain. NEUROLOGIC: Denies numbness, tingling, or weakness. All systems reviewed & are unremarkable except as noted in HPI and below PMFSH Past Medical History Medical History Alcohol abuse Arthritis Guo's cyst Right knee GERD (gastroesophageal reflux disease) Hypertension Obesity Surgical History Surgical History History of History of tubal ligation Family History Family History Father Heart disease Mother Kidney failure Social History Social History Smoking status: Never smoker Tobacco type: cigarettes Second hand tobacco smoke exposure: No Alcohol intake: current Drinks per week: 15 Substance use: never Substance use type: does not use Gender identity (if verbalized by the patient): Female Sexual Orientation (if Verbalized by the Patient): Straight or Heterosexual Spiritual care concerns: No Exam Narrative: GENERAL: Well appearing, well-nourished, non-toxic, in no acute distress. HEAD: Normocephalic, atraumatic. NECK: Supple. No adenopathy, no masses. RESPIRATORY: Airway patent, respirations nonlabored. Clear to auscultation bilaterally, no rales, rhonchi, wheezing. CARDIOVASCULAR: Regular rate and rhythm without murmurs, rubs, or gallops. Peripheral pulses 2+ and equal bilaterally. MUSCULOSKELETAL: Moves all extremities. Strength/ROM intact without gross deformities. Tenderness to palpation of left popliteal region and left upper posterior calf muscle. No edema. No palpable popliteal cyst on examination. SKIN: Warm, dry, normal color. No rashes. NEURO: A&O X3. Speech clear.
[2022-04-13] MEDS: KETOROLAC (*BKC) 60 MG/2 ML VIAL IM (11:25)
[2022-04-13 12:20] VITALS: BP 141/64; PULSE 88; RESP 14; O2SAT 100
== END 2022-04-13 12:25 | disposition home or self-care (01) ==
PROVIDERS: Emergency Provider Emergency Medicine; PCP Physician Assistant
DX: M71.22 Synovial cyst of popliteal space [Baker], left knee (principal); M19.90 Unspecified osteoarthritis, unspecified site; K21.9 Gastro-esophageal reflux disease without esophagitis; I10 Essential (primary) hypertension
CPT/HCPCS: 73564; 93971; 96372; 99284; J1885

== ENCOUNTER 2022-09-06 10:56 | Emergency (ER) | payer OTHER, SELFPAY ==
[2022-09-06 11:05] VITALS: BP 162/78; PULSE 74; RESP 16; TEMP 36.5; O2SAT 100
--- NOTE | 2022-09-06 11:38 | ED.URI ---
HPI - URI/Sore Throat General Chief Complaint: Upper Respiratory Infection Stated Complaint: Sinus, Bodyaches Time Seen by Provider: 09/06/22 11:30 Source: patient and RN notes reviewed Mode of arrival: ambulatory Limitations: no limitations History of Present Illness HPI Narrative: 47-year-old female presents to the [facility] with complaints of body aches and sinus pressure. Has taken azithromycin that she had leftover. States after the azithromycin she did not feel better. MD elicited complaint: rhinorrhea and nasal congestion Related Data Home Medications Medication Instructions Recorded Confirmed bupropion HCl 150 mg tablet,12 hr 150 mg PO BID 11/19/19 09/06/22 sustained-release furosemide 20 mg tablet 20 mg PO DAILY 11/19/19 09/06/22 losartan 50 mg tablet 50 mg PO DAILY 11/19/19 09/06/22 naltrexone 50 mg tablet 50 mg PO DAILY 11/19/19 09/06/22 norgestimate 0.25 mg-ethinyl 1 tablet PO DAILY 11/19/19 09/06/22 estradiol 35 mcg tablet (Sprintec (28)) sitagliptin 100 mg tablet (Januvia) 100 mg PO DAILY 08/22/20 09/06/22 gabapentin 100 mg capsule 100 mg PO DIRECTED 09/13/20 09/06/22 Allergies Allergy/AdvReac Type Severity Reaction Status Date / Time No Known Allergies Allergy Unknown Verified 09/06/22 11:19 Review of Systems Review of Systems: All systems reviewed & are unremarkable except as noted in HPI and below Constitutional: Constitutional: Reports no additional constitutional complaints, Denies chills and Denies fever(s) Eyes: Eyes: Reports no additional eye complaints ENT: Reports as per HPI and Reports nasal congestion Cardiovascular: Cardiovascular: Reports no additional cardiovascular complaints Respiratory: Respiratory: Reports no additional respiratory complaints Gastrointestinal: Gastrointestinal: Reports no additional gastrointestinal complaints Musculoskeletal: Musculoskeletal: Reports no additional musculoskeletal complaints Integumentary/Breasts: Skin/Breast: Reports system reviewed and no additional complaints, except as docu Neurologic: Reports system reviewed and no additional complaints, except as documented Psychiatric: Psychiatric: Reports no additional psychiatric complaints Allergic/Immunologic: Allergic/Immunologic: Reports no additional allergic/immunologic complaints PMFSH Past Medical History Medical History Alcohol abuse Arthritis Guo's cyst Right knee GERD (gastroesophageal reflux disease) Hypertension Obesity Surgical History Surgical History History of History of tubal ligation Family History Family History Father Heart disease Mother Kidney failure Social History Social History Smoking status: Never smoker Tobacco type: cigarettes Second hand tobacco smoke exposure: No Alcohol intake: current Drinks per week: 15 Substance use: never Substance use type: does not use Gender identity (if verbalized by the patient): Female Sexual Orientation (if Verbalized by the Patient): Straight or Heterosexual Spiritual care concerns: No Comments At the time of my signature, I reviewed and agree with the nursing past medical, surgical, social, and family history. There is no relevant family history pertinent to the patient complaint. Exam Const: General: healthy appearing, no acute distress, alert and well nourished Nutritional Appearance: well nourished Orientation/consciousness: patient oriented x3 Limitations: no limitations HENMT: Head: normal to inspection Ears: external ears normal, TM's normal bilaterally and EAC's normal Face/Nose/Sinus: Normal external nose present and Normal nares present Face and sinus: normal facial exam and face symmetric Mouth: Yes Normal oral and palata
== END 2022-09-06 11:51 | disposition home or self-care (01) ==
PROVIDERS: Emergency Provider Nurse Practitioner; PCP Physician Assistant
DX: J32.9 Chronic sinusitis, unspecified (principal); M19.90 Unspecified osteoarthritis, unspecified site; K21.9 Gastro-esophageal reflux disease without esophagitis; E66.9 Obesity, unspecified; Z68.35 Body mass index [BMI] 35.0-35.9, adult
CPT/HCPCS: 99213; G0463

== ENCOUNTER 2022-09-27 15:31 | Emergency (ER) | payer OTHER, SELFPAY ==
[2022-09-27 15:44] VITALS: BP 148/74; PULSE 94; RESP 16; TEMP 36.8; O2SAT 99
--- NOTE | 2022-09-27 16:13 | ED.BACK ---
HPI - Back Pain/Injury General Chief Complaint: Back Pain/Injury Stated Complaint: hip and back pain Time Seen by Provider: 09/27/22 15:53 Source: patient Mode of arrival: ambulatory Limitations: no limitations History of Present Illness HPI Narrative: 47-year-old female with history of high blood pressure, low back pain, EtOH abuse, currently being seen by [facility] presents today with complaints of low back pain radiating down the posterior left leg to mid thigh. Patient states the pain started she thinks on Saturday and this has progressively gotten worse. Patient states she tried naproxen and her muscle relaxers at home without relief. Patient denies any trauma, heavy lifting, or abnormal activities. Patient denies any urinary incontinence, saddle paresthesia, leg weakness, arm weakness, or bowel incontinence. Patient states she is currently out of her naproxen and does not take naltrexone. Patient has a history of EtOH abuse and currently is drinking. Per patient about 10 shots a day but significant other at the bedside states she gets drunk every day. Patient states she is only had a couple beers today. Related Data Home Medications Medication Instructions Recorded Confirmed bupropion HCl 150 mg tablet,12 hr 150 mg PO BID 11/19/19 09/06/22 sustained-release furosemide 20 mg tablet 20 mg PO DAILY 11/19/19 09/06/22 losartan 50 mg tablet 50 mg PO DAILY 11/19/19 09/06/22 naltrexone 50 mg tablet 50 mg PO DAILY 11/19/19 09/06/22 norgestimate 0.25 mg-ethinyl 1 tablet PO DAILY 11/19/19 09/06/22 estradiol 35 mcg tablet (Sprintec (28)) sitagliptin phosphate 100 mg 100 mg PO DAILY 08/22/20 09/06/22 tablet (Januvia) gabapentin 100 mg capsule 100 mg PO DIRECTED 09/13/20 09/06/22 Allergies Allergy/AdvReac Type Severity Reaction Status Date / Time No Known Allergies Allergy Unknown Verified 09/27/22 16:34 Review of Systems Review of Systems: CONSTITUTIONAL: Denies fever, chills, or sweats. CARDIOVASCULAR: Denies chest pain, palpitations, or edema. RESPIRATORY: Denies cough or dyspnea. GASTROINTESTINAL: Denies abdominal pain, nausea, vomiting, or diarrhea. GENITOURINARY: Denies dysuria or hematuria. SKIN: Denies rash or itching. MUSCULOSKELETAL: Low back pain radiating down left leg, back spasms. Denies joint pain, or myalgia. NEUROLOGIC: Denies headache, numbness, dizziness, or weakness. PSYCHIATRIC: Denies anxiety or depression. [facility] Past Medical History Medical History Alcohol abuse Arthritis Guo's cyst Right knee GERD (gastroesophageal reflux disease) Hypertension Obesity Surgical History Surgical History History of History of tubal ligation Family History Family History Father Heart disease Mother Kidney failure Social History Social History Smoking status: Never smoker Tobacco type: cigarettes Second hand tobacco smoke exposure: No Alcohol intake: current Drinks per week: 15 Substance use: never Substance use type: does not use Gender identity (if verbalized by the patient): Female Sexual Orientation (if Verbalized by the Patient): Straight or Heterosexual Spiritual care concerns: No Exam Narrative: GENERAL: Well-appearing, well-nourished, and in no acute distress. HEAD: Normocephalic, atraumatic. NECK: Supple. No adenopathy or masses. No carotid bruits or JVD CHEST: Clear to auscultation. No respiratory distress. No wheezes rales or rhonchi HEART: Regular rate and rhythm. No murmur heard. Normal peripheral pulses. ABDOMEN: Soft, nontender, nondistended, normal active bowel sounds. BACK: No spinal process tenderness. Tenderness noted to lumbar paraspinal muscle, tenderness to left gluteal. EXTREMITIES: Normal range of mot
[2022-09-27] MEDS: KETOROLAC (*BKC) 60 MG/2 ML VIAL IM (16:35)
[2022-09-27] MEDS: ORPHENADRINE CITRATE 100 MG TABLET.ER PO (16:35)
[2022-09-27] MEDS: LIDOCAINE 5% PATCH 1 PATCH TRANSDERM (16:35)
== END 2022-09-27 17:47 | disposition home or self-care (01) ==
PROVIDERS: Emergency Provider Nurse Practitioner Family; PCP Physician Assistant
DX: M54.42 Lumbago with sciatica, left side (principal); I10 Essential (primary) hypertension; E66.9 Obesity, unspecified; K21.9 Gastro-esophageal reflux disease without esophagitis; M19.90 Unspecified osteoarthritis, unspecified site; Z68.36 Body mass index [BMI] 36.0-36.9, adult; F10.10 Alcohol abuse, uncomplicated; Y90.9 Presence of alcohol in blood, level not specified
CPT/HCPCS: 96372; 99284; A9270; J1100; J1885

== ENCOUNTER 2023-04-04 18:40 | Emergency (ER) | payer OTHER, SELFPAY ==
[2023-04-04] VITALS (19 sets, daily range): BP systolic 126–159; BP diastolic 73–114; PULSE 72–97; RESP 12–23; TEMP 36.6; O2SAT 98–100
--- NOTE | ~2023-04-04 | XR_ITS ---
EXAMINATION: XR elbow RT min 3V DATE: 04/04/2023 20:30 INDICATION: Right elbow pain post fall TECHNIQUE: Anteroposterior, two oblique and lateral views of the right elbow were obtained. COMPARISON: None. FINDINGS: Alignment is normal. No fracture or joint effusion. Joint spaces are normal. Soft tissues are unremar kable. IMPRESSION: 1. Negative right elbow radiographs. Reviewed, dictated and finalized at location A.
--- NOTE | ~2023-04-04 | CT_ITS ---
EXAMINATION: CT abdomen pelvis w con DATE: 04/04/2023 20:59 INDICATION: Generalized abdominal pain TECHNIQUE: Computed tomography (CT) of the abdomen and pelvis was performed with 100 mL Omnipaque-350 intravenous contrast. Automated exposure control and iterative reconstruction technique were employe d. The dose-length product was 1502.11 mGy-cm. COMPARISON: 09/13/2020 FINDINGS: Lung bases are clear. Heart size is normal. No pericardial or pleural effusion. Gallbladder is dilate d to 5 cm diameter but without evident wall thickening or pericholecystic inflammatory stranding to s uggest acute cholecystitis. No evident gallstones or intra or extra hepatic biliary ductal dilation. Liver, pancreas, bilateral adrenal glands and left kidney are normal. 5 mm low-attenuation lesion at the lower pole of the right kidney most likely a cyst but too small to definitively characterize. Non specific mild splenomegaly measuring 14.1 cm which may be related to body habitus. There is mild to m oderate colonic diverticulosis with a sigmoid and descending colon predominance without adjacent infl ammatory change to suggest diverticulitis. Small bowel and appendix are normal. Bladder, anteverted u terus and bilateral adnexa are unremarkable. No free intraperitoneal gas or fluid. No pathologically enlarged abdominal or pelvic lymphadenopathy. Mild polyarticular osteoarthritis at the bilateral hips , sacroiliac joints and lumbar lower thoracic facet joints. IMPRESSION: 1. Gallbladder dilated to 5 cm but without evident cholelithiasis, other findings of acute cholecysti tis or biliary ductal dilation. Correlate with liver function tests and for Tomlin sign. If clinicall y indicated could consider right upper quadrant ultrasound for further evaluation. 2. Mild to moderate diverticulosis without evident diverticulitis. 3. Nonspecific mild splenomegaly which may be related to body habitus. Reviewed, dictated and finalized at location A. IMPRESSION: 1. Gallbladder dilated to 5 cm but without evident cholelithiasis, other findin gs of acute cholecystitis or biliary ductal dilation. Correlate with liver func tion tests and for Tomlin sign. If clinically indicated could consider right up per quadrant ultrasound for further evaluation. 2. Mild to moderate diverticulosis without evident diverticulitis. 3. Nonspecific mild splenomegaly which may be related to body habitus.
--- NOTE | ~2023-04-04 | XR_ITS ---
EXAMINATION: XR shoulder RT min 2V DATE: 04/04/2023 20:30 INDICATION: Right shoulder pain post fall TECHNIQUE: AP internally and externally rotated and transscapular Y views of the right shoulder were obtained. COMPARISON: None FINDINGS: Normal alignment. No fracture. Glenohumeral joint is normal. Mild subarticular cystic change at the lateral head of the right clavicle which could be related to mild osteoarthritis but could also be se en in setting of chronic distal clavicular osteolysis. Soft tissues are unremarkable. Visualized port ions of the right lung are clear. IMPRESSION: 1. No acute osseous abnormality. 2. Mild subarticular cystic change at the lateral head of the right clavicle most likely due to mild osteoarthritis but differential would include distal clavicular osteolysis. Reviewed, dictated and finalized at location A. IMPRESSION: 1. No acute osseous abnormality. 2. Mild subarticular cystic change at the lateral head of the right clavicle mo st likely due to mild osteoarthritis but differential would include distal clav icular osteolysis.
--- NOTE | 2023-04-04 19:49 | ECG_ITS ---
Measurements Intervals [place] Rate: 71 P: 48 SD: 200 QRS: -11 QRSD: 88 T: 17 QT: 386 QTc: 420 Interpretive Statements SINUS RHYTHM VOLTAGE CRITERIA FOR LVH BORDERLINE ECG NO PREVIOUS ECG AVAILABLE FOR COMPARISON Electronically Signed On 04-04-2023 21:30:36 CDT by Blaine Malin D.O.
[2023-04-04 20:22] LABS: Basophils Absolute Auto 0.1 K/mm3 (0.0-0.1); Basophils Percent Auto 1.6 % (0.2-1.2); Eosinophils Absolute Auto 0.2 K/mm3 (0-0.3); Eosinophils Percent Auto 3.1 % (0-4.4); Hematocrit 37.1 % (37.0-47.0); Hemoglobin 11.8 g/dL (12.0-15.0); Immature Granulocyte Absolute 0.01 K/mm3 (0.00-0.031); Immature Granulocyte Percent A 0.2 % (0-0.5); Lymphocytes Absolute Auto 3.25 K/mm3 (0.9-3.2); Lymphocytes Percent Auto 53.1 % (18.3-44.2); Mean Corpuscular HGB Conc 31.8 g/dl (32-36); Mean Corpuscular Hemoglobin 24.3 pg (26-34); Mean Corpuscular Volume 76.3 fl (80-100); Mean Platelet Volume 8.7 fl (7.4-10.4); Monocytes Absolute Auto 0.4 K/mm3 (0.1-0.6); Monocytes Percent Auto 5.7 % (2.6-8.5); Neutrophils Absolute Auto 2.2 K/mm3 (1.3-6.7); Neutrophils Percent Auto 36.3 % (45.5-73.1); Platelet Count Result 357 k/mm3 (150-375); Red Blood Count 4.86 M/mm3 (4.2-5.4); Red Cell Distribution Width 17.4 % (11.5-14.5); White Blood Count 6.1 K/mm3 (4.5-10.0)
[2023-04-04 20:28] LABS: Appearance Urine Cloudy (Clear); Bacteria Urine Rare /hpf; Bilirubin Urine Negative (Negative); Blood Urine Negative (Negative); Color Urine Yellow (Yellow); Glucose Urine UA Negative (Negative); Ketones Urine Negative (Negative); Leukocyte Esterase Ur Negative LEU/UL (Negative); Nitrate Urine Negative (Negative); Non Pathogenic Casts 0-2; Protein Urine Negative (Negative); RBC Urine 0-2 /hpf (0-2); Squamous Epithelial Cell Urine Few /hpf (Few); WBC Urine 0-5 /hpf
[2023-04-04 20:32] LABS: Add Urine Microscopic? YES
[2023-04-04 20:36] LABS: Alanine Aminotransferase 39 U/L (6-35); Albumin Level 4.1 g/dL (3.5-5.1); Alkaline Phosphatase 69 U/L (38-126); Anion Gap 10 mmol/L (8-16); Aspartate Amino Transferase 40 U/L (14-36); Bilirubin,Total 0.8 mg/dL (0.2-1.3); Blood Urea Nitrogen 12 mg/dL (7-17); Calcium 8.3 mg/dL (8.4-10.2); Carbon Dioxide 28 mmol/L (22-30); Chloride 104 mmol/L (98-107); Estimated CRCL calculation 132 ml/min; Estimated Glomerular Filt Rate > 60; Glucose 148 mg/dL (65-110); Lipase 112 U/L (23-300); Sodium 142 mmol/L (137-145)
[2023-04-04] MEDS: SODIUM CHLORIDE 0.9% IV 1,000 ML 999 ML IV CONT ×2 (20:46→20:47)
[2023-04-04] MEDS: ONDANSETRON INJ 4 MG/2 ML VIAL IV PUSH (20:47)
[2023-04-04] MEDS: diphenhydrAMINE HCl INJ 50 MG/ML VIAL IV PUSH (22:14)
--- NOTE | 2023-04-04 23:38 | ED.GENADULT ---
HPI - General Adult General Chief complaint: Unspecified Stated complaint: GERD, fall Time Seen by Provider: 04/04/23 19:52 History of Present Illness HPI narrative: Patient 47-year-old female presents emergency department with chief complaint of near syncopal episode. The patient reports has been having nausea vomiting diarrhea since Saturday. The patient reports that this evening she got lightheaded patient reports that she fell when this happened struck her right shoulder and right elbow. Patient states that her abdomen has been hurting diffusely and A crampy sensation. Patient denies head injury denies loss of consciousness. Patient reports she is not on any blood thinners. Related Data Home Medications Medication Instructions Recorded Confirmed bupropion HCl 150 mg tablet,12 hr 150 mg PO BID 11/19/19 09/06/22 sustained-release furosemide 20 mg tablet 20 mg PO DAILY 11/19/19 09/06/22 losartan 50 mg tablet 50 mg PO DAILY 11/19/19 09/06/22 naltrexone 50 mg tablet 50 mg PO DAILY 11/19/19 09/06/22 norgestimate 0.25 mg-ethinyl 1 tablet PO DAILY 11/19/19 09/06/22 estradiol 35 mcg tablet (Sprintec (28)) sitagliptin phosphate 100 mg 100 mg PO DAILY 08/22/20 09/06/22 tablet (Januvia) gabapentin 100 mg capsule 100 mg PO DIRECTED 09/13/20 09/06/22 Allergies Allergy/AdvReac Type Severity Reaction Status Date / Time No Known Allergies Allergy Unknown Verified 04/04/23 19:47 Review of Systems Review of Systems: A 10 system review of systems was completed on the patient and is negative except for what is stated in the HPI. Nursing and ancillary documentation was reviewed. [facility] Past Medical History Medical History Alcohol abuse Arthritis Guo's cyst Right knee GERD (gastroesophageal reflux disease) Hypertension Obesity Surgical History Surgical History History of History of tubal ligation Family History Family History Father Heart disease Mother Kidney failure Social History Social History Smoking status: Never smoker Tobacco type: cigarettes Second hand tobacco smoke exposure: No Alcohol intake: current Drinks per week: 15 Substance use: never Substance use type: does not use Living arrangements: with family Occupation/Education: occupation Gender identity (if verbalized by the patient): Female Sexual Orientation (if Verbalized by the Patient): Straight or Heterosexual Spiritual care concerns: No Exam Narrative: GENERAL: Well-appearing, well-nourished, and in no acute distress. HEAD: Normocephalic, atraumatic. EYES: PERRLA and EOMI. ENT: Nares clear, no rhinorrhea or epistaxis. Mucous membranes moist. NECK: Supple. CHEST: Clear to auscultation. No respiratory distress. HEART: Regular rate and rhythm. No murmur heard. Normal peripheral pulses. ABDOMEN: Soft, diffuse tenderness to palpation, nondistended, normal active bowel sounds. EXTREMITIES: Normal range of motion. No edema. There is tenderness to palpation in the right shoulder and right elbow SKIN: Warm, dry, no rash. NEURO: No focal deficits. Alert and oriented x3. PSYCH: Normal mood and affect. Course Vital Signs Vital signs: Vital Signs Temperature 36.6 C 04/04/23 18:43 Pulse Rate 86 04/04/23 18:43 Respiratory Rate 17 04/04/23 18:43 Blood Pressure 159/96 H 04/04/23 18:43 Pulse Oximetry 100 04/04/23 18:43 Oxygen Delivery Room Air 04/04/23 18:43 Temperature 37.1 C 04/05/23 00:24 Pulse Rate 89 04/05/23 00:24 Respiratory Rate 18 04/05/23 00:24 Blood Pressure 118/78 04/05/23 00:24 Pulse Oximetry 99 04/05/23 00:24 Oxygen Delivery Room Air 04/04/23 18:43 Medical Decision
[2023-04-05 00:24] VITALS: BP 118/78; PULSE 89; RESP 18; TEMP 37.1; O2SAT 99
== END 2023-04-05 00:35 | disposition home or self-care (01) ==
PROVIDERS: Emergency Provider Emergency Medicine; PCP Physician Assistant
DX: R55 Syncope and collapse (principal); E86.0 Dehydration; S40.011A Contusion of right shoulder, initial encounter; S50.01XA Contusion of right elbow, initial encounter; I10 Essential (primary) hypertension; M19.90 Unspecified osteoarthritis, unspecified site; K21.9 Gastro-esophageal reflux disease without esophagitis; E66.9 Obesity, unspecified; Z68.39 Body mass index [BMI] 39.0-39.9, adult; Z79.84 Long term (current) use of oral hypoglycemic drugs; R93.6 Abnormal findings on diagnostic imaging of limbs; K57.90 Diverticulosis of intestine, part unspecified, without perforation or abscess without bleeding; R16.1 Splenomegaly, not elsewhere classified; R93.2 Abnormal findings on diagnostic imaging of liver and biliary tract
CPT/HCPCS: 36415; 73030; 73080; 74177; 80053; 81001; 81025; 83690; 85025; 93005; 96361; 96374; 96375; 99284; J1200; J2405; J7030; Q9967

== ENCOUNTER 2023-08-05 06:43 | Emergency (ER) | payer OTHER, SELFPAY ==
[2023-08-05] VITALS (25 sets, daily range): BP systolic 162–198; BP diastolic 75–110; PULSE 75–115; RESP 13–35; TEMP 36.7; O2SAT 96–100
--- NOTE | ~2023-08-05 | XR_ITS ---
Clinical Indication: Chest pain AP and lateral views of the chest: Comparison: 07/25/2020 Findings: The lungs are clear, without evidence of focal consolidation or pleural effusion. Cardiome diastinal silhouette is within normal limits. Bones and soft tissues are unremarkable. Impression: Normal chest. Reviewed, dictated and finalized at [facility]. Impression: Normal chest.
--- NOTE | ~2023-08-05 | CT_ITS ---
Clinical Indication: Chest pain CT Scan of the Chest with Contrast: Technique: Contiguous sections were acquired throughout the chest after intravenous administration of 200 cc of Omnipaque 350. Dose reduction technique was used on this scan by utilizing automated expos ure control and iterative reconstruction technique. The dose-length product (DLP) was 1509.90 mGy-cm. Findings: There is no evidence of any significant mediastinal, hilar or axillary lymphadenopathy. There is no f illing defect in the pulmonary arterial tree to suggest pulmonary embolus. There is no evidence of ao rtic dissection or aneurysm. There is no evidence of pleural or pericardial effusion. The lungs are clear. No pulmonary nodules or infiltrates are noted. Images through the upper abdomen reveal no abnormalities. Impression: No evidence of pulmonary embolus, aortic dissection, or aortic aneurysm. Clear lungs. Reviewed, dictated and finalized at [facility]. Impression: No evidence of pulmonary embolus, aortic dissection, or aortic aneurysm. Clear lungs.
--- NOTE | 2023-08-05 06:46 | ECG_ITS ---
Measurements Intervals [place] Rate: 98 P: [place]: 0 QRS: -9 QRSD: 90 T: 41 QT: 357 QTc: 458 Interpretive Statements SINUS RHYTHM VOLTAGE CRITERIA FOR LVH BASELINE ARTIFACT- I, II, III, AVR, AVL, AVF, V1-V6 BORDERLINE ECG COMPARED TO ECG 04/04/2023 19:53:25 NO SIGNIFICANT CHANGES Electronically Signed On 08-05-2023 6:57:46 CDT by Blaine Malin D.O.
[2023-08-05 06:57] LABS: Basophils Absolute Auto 0.1 K/mm3 (0.0-0.1); Basophils Percent Auto 1.3 % (0.2-1.2); Eosinophils Absolute Auto 0.2 K/mm3 (0-0.3); Eosinophils Percent Auto 4.5 % (0-4.4); Hematocrit 33.6 % (37.0-47.0); Hemoglobin 10.3 g/dL (12.0-15.0); Immature Granulocyte Absolute 0.02 K/mm3 (0.00-0.031); Immature Granulocyte Percent A 0.4 % (0-0.5); Lymphocytes Absolute Auto 1.76 K/mm3 (0.9-3.2); Lymphocytes Percent Auto 37.9 % (18.3-44.2); Mean Corpuscular HGB Conc 30.7 g/dl (32-36); Mean Corpuscular Hemoglobin 25.1 pg (26-34); Mean Platelet Volume 8.7 fl (7.4-10.4); Monocytes Absolute Auto 0.5 K/mm3 (0.1-0.6); Monocytes Percent Auto 10.3 % (2.6-8.5); Neutrophils Absolute Auto 2.1 K/mm3 (1.3-6.7); Neutrophils Percent Auto 45.6 % (45.5-73.1); Platelet Count Result 334 k/mm3 (150-375); Red Cell Distribution Width 18.3 % (11.5-14.5); White Blood Count 4.6 K/mm3 (4.5-10.0)
--- NOTE | 2023-08-05 07:03 | PC.NURSE ---
Patient care report given to VIRA Jeffery. All questions answered at this time.
[2023-08-05 07:07] LABS: Alanine Aminotransferase 47 U/L (6-35); Albumin Level 4.2 g/dL (3.5-5.1); Alkaline Phosphatase 89 U/L (38-126); Anion Gap 13 mmol/L (8-16); Aspartate Amino Transferase 56 U/L (14-36); Bilirubin,Total 0.5 mg/dL (0.2-1.3); Blood Urea Nitrogen 7 mg/dL (7-17); Calcium 8.3 mg/dL (8.4-10.2); Carbon Dioxide 22 mmol/L (22-30); Chloride 103 mmol/L (98-107); Estimated CRCL calculation 146 ml/min; Estimated Glomerular Filt Rate > 60; Glucose 223 mg/dL (65-110); Lipase 175 U/L (23-300); Potassium 3.7 mmol/L (3.4-5.0); Prothrombin Time 14.1 Seconds (11.1-14.7); Sodium 138 mmol/L (137-145)
[2023-08-05 07:08] LABS: Partial Thromboplastin Time 27.1 SECONDS (22.3-36.8)
[2023-08-05] MEDS: ASPIRIN 81 MG CHEWABLE TABLET 324 MG PO (07:17)
[2023-08-05 07:18] LABS: Troponin I < 0.012 ng/mL (0.000-0.034)
--- NOTE | 2023-08-05 07:21 | ED.CHESTPAIN ---
HPI - Chest Pain General Chief Complaint: Chest Pain Stated Complaint: chest pain, anxiety, N/V Time Seen by Provider: 08/05/23 06:58 History of Present Illness HPI narrative: This is a 48-year-old female, past history of hypertension and diabetes, who presents emergency department complaining of sharp left chest pain. The patient states pain began last night after 2 days of coughing clear sputum without blood. She rates it an 8/10. She states that it radiates around the chest and is aggravated by coughing as well as movement. She also feels she is having a panic attack due to pain. She denies shortness of breath, loss of consciousness, or weakness/numbness. Related Data Home Medications Medication Instructions Recorded Confirmed bupropion HCl 150 mg tablet,12 hr 150 mg PO BID 11/19/19 09/06/22 sustained-release furosemide 20 mg tablet 20 mg PO DAILY 11/19/19 09/06/22 losartan 50 mg tablet 50 mg PO DAILY 11/19/19 09/06/22 naltrexone 50 mg tablet 50 mg PO DAILY 11/19/19 09/06/22 norgestimate 0.25 mg-ethinyl 1 tablet PO DAILY 11/19/19 09/06/22 estradiol 35 mcg tablet (Sprintec (28)) sitagliptin phosphate 100 mg 100 mg PO DAILY 08/22/20 09/06/22 tablet (Januvia) gabapentin 100 mg capsule 100 mg PO DIRECTED 09/13/20 09/06/22 Allergies Allergy/AdvReac Type Severity Reaction Status Date / Time No Known Allergies Allergy Unknown Verified 08/05/23 06:51 Review of Systems Review of Systems: CONSTITUTIONAL: Denies fever, chills, or sweats. CARDIOVASCULAR: Chest pain denies palpitations, or edema. RESPIRATORY: Cough denies dyspnea. GASTROINTESTINAL: Denies abdominal pain, nausea, vomiting, or diarrhea. GENITOURINARY: Denies dysuria or hematuria. SKIN: Denies rash or itching. MUSCULOSKELETAL: Denies back pain, joint pain, or myalgia. NEUROLOGIC: Denies headache, numbness, dizziness, or weakness. PSYCHIATRIC: Denies anxiety or depression. [facility] Past Medical History Medical History Alcohol abuse Arthritis Guo's cyst Right knee GERD (gastroesophageal reflux disease) Hypertension Obesity Surgical History Surgical History History of History of tubal ligation Family History Family History Father Heart disease Mother Kidney failure Social History Social History Smoking status: Never smoker Tobacco type: cigarettes Second hand tobacco smoke exposure: No Alcohol intake: current Drinks per week: 15 Substance use: never Substance use type: does not use Living arrangements: with family Occupation/Education: occupation Gender identity (if verbalized by the patient): Female Sexual Orientation (if Verbalized by the Patient): Straight or Heterosexual Spiritual care concerns: No Exam Narrative: GENERAL: Well-developed, well-nourished, appears anxious HEAD: Normocephalic, atraumatic. EYES: PERRLA and EOMI. ENT: Nares clear, no rhinorrhea or epistaxis. Mucous membranes moist. Oropharynx without tonsillar hypertrophy exudate or other lesions. CHEST: Clear to auscultation. No respiratory distress. No wheezes rales or rhonchi. Tender to palpation over the anterior left chest wall HEART: Regular rate and rhythm. No murmur heard. Normal peripheral pulses. ABDOMEN: Soft, nontender, nondistended, normal active bowel sounds. EXTREMITIES: Normal range of motion. No edema. SKIN: Warm, dry, no rash. NEURO: Alert and oriented x3. Moving all 4 limbs purposefully. PSYCH: Anxious mood and affect Course Course Emergency Course: 07:25 - EKG not concerning for ischemia, troponin negative. Chemistries otherwise demonstrate hyperglycemia and mild hypocalcemia at 8.3. Heart score 3. 09:33 - D-dimer positive. CT PE negative for PE. I jaimee
[2023-08-05] MEDS: LORazepam (*CRX) 0.5 MG TABLET PO (07:22)
[2023-08-05] MEDS: NITROGLYCERIN SL 0.4 MG TABLET SUBLINGUAL (07:22)
[2023-08-05] MEDS: MORPHINE SULFATE (*CRX) 2 MG/ML INJ IV PUSH (07:22)
[2023-08-05 08:02] LABS: D Dimer 0.68 ug/mL (<0.48)
== END 2023-08-05 09:55 | disposition home or self-care (01) ==
PROVIDERS: Emergency Medicine; Emergency Provider Preventive Medicine Aerospace Medicine; PCP Physician Assistant
DX: M94.0 Chondrocostal junction syndrome [Tietze] (principal); E11.9 Type 2 diabetes mellitus without complications; I10 Essential (primary) hypertension; M19.90 Unspecified osteoarthritis, unspecified site; K21.9 Gastro-esophageal reflux disease without esophagitis; E66.9 Obesity, unspecified; Z68.36 Body mass index [BMI] 36.0-36.9, adult; Z79.84 Long term (current) use of oral hypoglycemic drugs
CPT/HCPCS: 36415; 71046; 71275; 80053; 83690; 84484; 85025; 85380; 85610; 85730; 93005; 96374; 99284; A9270; J2270; Q9967

== ENCOUNTER 2023-09-23 10:35 | Emergency (ER) | payer OTHER, MEDICAID, SELFPAY ==
--- NOTE | 2023-09-23 10:55 | ED.FEMALEGU ---
HPI - Female Genitourinary General Chief complaint: Urogenital-Female Stated complaint: UTI Time Seen by Provider: 09/23/23 10:45 Source: patient Mode of arrival: ambulatory Limitations: no limitations History of Present Illness HPI Narrative: Patient is a 48-year-old female who presents with burning with urination, urgency and frequency. Patient has been taking azo with moderate relief. Was unable to get into her PCP due to her being on vacation. Denies any low back pain, fever, chills, nausea, vomiting, diarrhea. MD elicited complaint: dysuria Related Data Home Medications Medication Instructions Recorded Confirmed bupropion HCl 150 mg tablet,12 hr 150 mg PO BID 11/19/19 09/06/22 sustained-release furosemide 20 mg tablet 20 mg PO DAILY 11/19/19 09/06/22 losartan 50 mg tablet 50 mg PO DAILY 11/19/19 09/06/22 naltrexone 50 mg tablet 50 mg PO DAILY 11/19/19 09/06/22 norgestimate 0.25 mg-ethinyl 1 tablet PO DAILY 11/19/19 09/06/22 estradiol 35 mcg tablet (Sprintec (28)) sitagliptin phosphate 100 mg 100 mg PO DAILY 08/22/20 09/06/22 tablet (Januvia) gabapentin 100 mg capsule 100 mg PO DIRECTED 09/13/20 09/06/22 Allergies Allergy/AdvReac Type Severity Reaction Status Date / Time No Known Allergies Allergy Unknown Verified 08/05/23 06:51 Review of Systems Review of Systems: All systems reviewed & are unremarkable except as noted in HPI and below Constitutional: Constitutional: Denies chills, Denies fever(s), Denies headache(s), Denies malaise and Denies weakness Eyes: Eyes: Denies change in vision, Denies eye discharge and Denies irritation ENT: Denies otalgia, Denies headache(s), Denies nasal congestion, Denies nasal discharge, Denies sinus pain and Denies sore throat Cardiovascular: Cardiovascular: Denies chest pain, Denies edema, Denies palpitations and Denies dyspnea Respiratory: Respiratory: Denies cough and Denies dyspnea Gastrointestinal: Gastrointestinal: Denies abdominal pain, Denies diarrhea, Denies nausea and Denies vomiting Genitourinary: Genitourinary: Denies hematuria, Reports dysuria, Denies flank pain and Reports urinary urgency Musculoskeletal: Musculoskeletal: Denies back pain and Denies numbness Integumentary/Breasts: Skin/Breast: Denies pruritus and Denies rash Neurologic: Denies headache(s), Denies numbness and Denies weakness Psychiatric: Psychiatric: Reports no additional psychiatric complaints Endocrine: Endocrine: Denies palpitations PMFSH Past Medical History Medical History Alcohol abuse Arthritis Guo's cyst Right knee GERD (gastroesophageal reflux disease) Hypertension Obesity Surgical History Surgical History History of History of tubal ligation Family History Family History Father Heart disease Mother Kidney failure Social History Social History Smoking status: Never smoker Tobacco type: cigarettes Second hand tobacco smoke exposure: No Alcohol intake: current Drinks per week: 15 Substance use: never Substance use type: does not use Living arrangements: with family Occupation/Education: occupation Gender identity (if verbalized by the patient): Female Sexual Orientation (if Verbalized by the Patient): Straight or Heterosexual Spiritual care concerns: No Comments At time of signature, agree with nursing past medical, surgical, social and family history. There is no relevant family history pertinent to the presenting complaint. Exam Const: General: cooperative, healthy appearing, comfortable, no acute distress and well nourished Nutritional Appearance: well nourished Orientation/consciousness: patient oriented x3 HENMT: Head: normocephalic and atraumatic Ears: externa
[2023-09-23 11:00] VITALS: BP 184/89; PULSE 86; RESP 20; TEMP 36.4; O2SAT 100
== END 2023-09-23 11:34 | disposition home or self-care (01) ==
PROVIDERS: Emergency Provider Nurse Practitioner Family; PCP Physician Assistant
DX: N30.00 Acute cystitis without hematuria (principal); K21.9 Gastro-esophageal reflux disease without esophagitis; I10 Essential (primary) hypertension; E66.9 Obesity, unspecified; Z68.41 Body mass index [BMI] 40.0-44.9, adult; M19.90 Unspecified osteoarthritis, unspecified site
CPT/HCPCS: 81003; 87086; 87088; 99213; G0463

== ENCOUNTER 2024-02-11 13:42 | Emergency (ER) | payer MEDICAID, SELFPAY ==
[2024-02-11 14:02] VITALS: BP 128/76; PULSE 86; RESP 18; TEMP 36.3; O2SAT 100
[2024-02-11] MEDS: LIDOCAINE HCL 1% LOCAL INJ 2 ML AMPUL 10 ML INFILTRATE (15:23)
--- NOTE | 2024-02-11 16:05 | ED.GENADULT ---
HPI - General Adult General Chief complaint: Skin/Abscess/Foreign Body Stated complaint: spot on back, allergic reaction on right hip Source: patient Mode of arrival: ambulatory Limitations: no limitations History of Present Illness HPI narrative: Patient presents for evaluation of a painful swollen lesion to the right side of her back for the last week. She indicates she has history of an infected sebaceous cyst that was removed by a surgeon in [place]. She believes assist was in that general area. She denies any fever, chills, nausea, vomiting, drainage from the affected area. She is diabetic and states home BS have been in 170's. She states she sustained a fall about three weeks ago. she was taken to the emergency department in her blood sugar was high. She was given insulin and developed a rash to the posterior aspect of her bilateral lower extremities which has persisted since that time. Rash is pruritic. She has applied witch tatianna without much improvement. Related Data Home Medications Medication Instructions Recorded Confirmed bupropion HCl 150 mg tablet,12 hr 150 mg PO BID 11/19/19 02/11/24 sustained-release furosemide 20 mg tablet 20 mg PO DAILY 11/19/19 02/11/24 losartan 50 mg tablet 50 mg PO DAILY 11/19/19 02/11/24 naltrexone 50 mg tablet 50 mg PO DAILY 11/19/19 02/11/24 norgestimate 0.25 mg-ethinyl 1 tablet PO DAILY 11/19/19 02/11/24 estradiol 35 mcg tablet (Sprintec (28)) sitagliptin phosphate 100 mg 100 mg PO DAILY 08/22/20 02/11/24 tablet (Januvia) gabapentin 100 mg capsule 100 mg PO DIRECTED 09/13/20 02/11/24 Allergies Allergy/AdvReac Type Severity Reaction Status Date / Time No Known Allergies Allergy Unknown Verified 08/05/23 06:51 Review of Systems Review of Systems: CONSTITUTIONAL: Denies fever, chills, or sweats. EYES: Denies visual changes, redness, or discharge. ENT: Denies rhinorrhea, congestion, sore throat, or otalgia. CARDIOVASCULAR: Denies chest pain, palpitations, or edema. RESPIRATORY: Denies cough or dyspnea. GASTROINTESTINAL: Denies abdominal pain, nausea, vomiting, or diarrhea. GENITOURINARY: Denies dysuria or hematuria. SKIN: Reports painful swollen lesion to the right side of her back. Reports pruritic rash to the posterior aspect of bilateral lower extremities MUSCULOSKELETAL: Denies back pain, joint pain, or myalgia. NEUROLOGIC: Denies headache, numbness, dizziness, or weakness. PSYCHIATRIC: Denies anxiety or depression. [facility] Past Medical History Medical History Alcohol abuse Arthritis Guo's cyst Right knee Diabetes GERD (gastroesophageal reflux disease) Hypertension Infected sebaceous cyst Obesity Surgical History Surgical History History of History of tubal ligation Family History Family History Father Heart disease Mother Kidney failure Social History Social History Smoking status: Never smoker Second hand tobacco smoke exposure: No Alcohol intake: former Alcohol use details: quit drinking about one month ago 2/2 diabetes Substance use: never Substance use type: does not use Living arrangements: with family Occupation/Education: occupation Gender identity (if verbalized by the patient): Female Sexual Orientation (if Verbalized by the Patient): Straight or Heterosexual Spiritual care concerns: No Exam Narrative: GENERAL: Well-appearing, well-nourished, and in no acute distress. HEAD: Normocephalic, atraumatic. EYES: PERRLA and EOMI. ENT: Nares clear, no rhinorrhea or epistaxis. Mucous membranes moist. Oropharynx without tonsillar hypertrophy exudate or other lesions. Bilateral TMs pearly pan nonbulging NECK: Supple. No adenopathy or m
== END 2024-02-11 16:10 | disposition home or self-care (01) ==
PROVIDERS: Emergency Provider Nurse Practitioner
DX: L72.3 Sebaceous cyst (principal); B35.9 Dermatophytosis, unspecified; M19.90 Unspecified osteoarthritis, unspecified site; E11.9 Type 2 diabetes mellitus without complications; K21.9 Gastro-esophageal reflux disease without esophagitis; I10 Essential (primary) hypertension; E66.9 Obesity, unspecified; Z68.37 Body mass index [BMI] 37.0-37.9, adult
CPT/HCPCS: 10061; 87070; 87075; 87076; 87205; 99213; G0463

== ENCOUNTER 2024-04-21 08:02 | Emergency (ER) | payer OTHER, MEDICAID, SELFPAY ==
[2024-04-21 08:10] VITALS: BP 169/100; PULSE 77; RESP 16; TEMP 36.3; O2SAT 100
--- NOTE | 2024-04-21 08:11 | ED.URI ---
HPI - URI/Sore Throat General Chief Complaint: Upper Respiratory Infection Stated Complaint: cough,congestion Time Seen by Provider: 04/21/24 08:10 Source: patient, RN notes reviewed and old records reviewed Mode of arrival: ambulatory Limitations: no limitations History of Present Illness HPI Narrative: 48-year-old female presents to the [facility] with complaints of cough congestion for about 10 days. States that she was seen and gave way yesterday, was not prescribed anything. Reports she signed out against medical advise Onset (ago): week(s) (1-2) Related Data Home Medications Medication Instructions Recorded Confirmed bupropion HCl 150 mg tablet,12 hr 150 mg PO BID 11/19/19 04/21/24 sustained-release furosemide 20 mg tablet 20 mg PO DAILY 11/19/19 04/21/24 losartan 50 mg tablet 50 mg PO DAILY 11/19/19 04/21/24 naltrexone 50 mg tablet 50 mg PO DAILY 11/19/19 04/21/24 norgestimate 0.25 mg-ethinyl 1 tablet PO DAILY 11/19/19 04/21/24 estradiol 35 mcg tablet (Sprintec (28)) sitagliptin phosphate 100 mg 100 mg PO DAILY 08/22/20 04/21/24 tablet (Januvia) gabapentin 100 mg capsule 100 mg PO DIRECTED 09/13/20 04/21/24 Allergies Allergy/AdvReac Type Severity Reaction Status Date / Time No Known Allergies Allergy Unknown Verified 04/21/24 08:06 Review of Systems Review of Systems: All systems reviewed & are unremarkable except as noted in HPI and below Constitutional: Constitutional: Reports no additional constitutional complaints Eyes: Eyes: Reports no additional eye complaints ENT: Reports system reviewed and no additional complaints, except as documented Cardiovascular: Cardiovascular: Reports no additional cardiovascular complaints, Denies chest pain and Denies dyspnea Respiratory: Respiratory: Reports as per HPI, Denies chest congestion, Reports cough and Denies dyspnea Gastrointestinal: Gastrointestinal: Reports no additional gastrointestinal complaints, Denies abdominal pain, Denies nausea and Denies vomiting Musculoskeletal: Musculoskeletal: Reports no additional musculoskeletal complaints Integumentary/Breasts: Skin/Breast: Reports system reviewed and no additional complaints, except as docu Neurologic: Reports system reviewed and no additional complaints, except as documented Psychiatric: Psychiatric: Reports no additional psychiatric complaints Allergic/Immunologic: Allergic/Immunologic: Reports no additional allergic/immunologic complaints PMFSH Past Medical History Medical History Alcohol abuse Arthritis Guo's cyst Right knee Diabetes GERD (gastroesophageal reflux disease) Hypertension Infected sebaceous cyst Obesity Surgical History Surgical History History of History of tubal ligation Family History Family History Father Heart disease Mother Kidney failure Social History Social History Smoking status: Never smoker Second hand tobacco smoke exposure: No Alcohol intake: former Alcohol use details: quit drinking about one month ago 2/2 diabetes Substance use: never Substance use type: does not use Living arrangements: with family Occupation/Education: occupation Gender identity (if verbalized by the patient): Female Sexual Orientation (if Verbalized by the Patient): Straight or Heterosexual Spiritual care concerns: No Comments At the time of my signature, I reviewed and agree with the nursing past medical, surgical, social, and family history. There is no relevant family history pertinent to the patient complaint. Exam Const: General: cooperative, healthy appearing, comfortable, no acute distress, well developed, alert and well nourished Nutritional Appearance: well nourished and obese Orientation/c
== END 2024-04-21 08:30 | disposition home or self-care (01) ==
PROVIDERS: Emergency Provider Nurse Practitioner; PCP Physician Assistant
DX: J40 Bronchitis, not specified as acute or chronic (principal); M19.90 Unspecified osteoarthritis, unspecified site; E11.9 Type 2 diabetes mellitus without complications; K21.9 Gastro-esophageal reflux disease without esophagitis; I10 Essential (primary) hypertension; E66.9 Obesity, unspecified; Z68.34 Body mass index [BMI] 34.0-34.9, adult
CPT/HCPCS: 99213; G0463

== ENCOUNTER 2024-04-27 14:14 | Emergency (ER) | payer MEDICAID, SELFPAY ==
[2024-04-27] VITALS (26 sets, daily range): BP systolic 105–147; BP diastolic 60–91; PULSE 77–103; RESP 14–34; TEMP 36.9; O2SAT 91–100
--- NOTE | ~2024-04-27 | XR_ITS ---
EXAMINATION: XR chest 2V 04/27/2024 14:50 INDICATION: Shortness of breath and chest pain PROCEDURE: 2 view chest COMPARISON: 08/05/2023 FINDINGS: The lungs are clear. The cardiomediastinal silhouette is within normal limits. There are no pleural effusions. There is no pneumothorax suspected. IMPRESSION: 1: NO ACUTE CARDIOPULMONARY DISEASE. Reviewed, dictated and finalized at location B.
--- NOTE | 2024-04-27 14:23 | ECG_ITS ---
Test Date: 2024-04-27 14:19:27 Measurements Intervals [place] Rate: 97 P: 46 MA: 191 QRS: 21 QRSD: 79 T: 74 QT: 352 QTc: 448 Interpretive Statements SINUS RHYTHM NONSPECIFIC ST & T-WAVE ABNORMALITY No previous ECG available for comparison Electronically Signed On 04-28-2024 10:45:55 CDT by Martha Hobson M.D.
[2024-04-27 14:35] LABS: Basophils Absolute Auto 0.1 K/mm3 (0.0-0.1); Basophils Percent Auto 1.5 % (0.2-1.2); Eosinophils Absolute Auto 0.4 K/mm3 (0-0.3); Eosinophils Percent Auto 5.5 % (0-4.4); Hematocrit 32.8 % (37.0-47.0); Hemoglobin 10.1 g/dL (12.0-15.0); Immature Granulocyte Absolute 0.03 K/mm3 (0.00-0.031); Immature Granulocyte Percent A 0.4 % (0-0.5); Lymphocytes Absolute Auto 2.68 K/mm3 (0.9-3.2); Lymphocytes Percent Auto 39.1 % (18.3-44.2); Mean Corpuscular HGB Conc 30.8 g/dl (32-36); Mean Corpuscular Hemoglobin 24.8 pg (26-34); Mean Corpuscular Volume 80.6 fl (80-100); Mean Platelet Volume 9.3 fl (7.4-10.4); Monocytes Absolute Auto 0.5 K/mm3 (0.1-0.6); Monocytes Percent Auto 7.2 % (2.6-8.5); Neutrophils Absolute Auto 3.2 K/mm3 (1.3-6.7); Neutrophils Percent Auto 46.3 % (45.5-73.1); Platelet Count Result 344 k/mm3 (150-375); Red Blood Count 4.07 M/mm3 (4.2-5.4); Red Cell Distribution Width 18.8 % (11.5-14.5); White Blood Count 6.9 K/mm3 (4.5-10.0)
[2024-04-27 14:36] LABS: Glucose Point of Care 244 mg/dl (65-105)
[2024-04-27 14:44] LABS: INR 1.1; Prothrombin Time 14.1 Seconds (11.1-14.7)
[2024-04-27 14:45] LABS: Partial Thromboplastin Time 26.7 Seconds (22.3-36.8)
[2024-04-27 14:48] LABS: Alanine Aminotransferase 45 U/L (6-35); Alkaline Phosphatase 95 U/L (38-126); Anion Gap 11 mmol/L (4-12); Aspartate Amino Transferase 46 U/L (14-36); Bilirubin,Total 0.4 mg/dL (0.2-1.3); Blood Urea Nitrogen 7 mg/dL (7-17); Calcium 8.3 mg/dL (8.4-10.2); Carbon Dioxide 22 mmol/L (22-30); Chloride 108 mmol/L (98-107); Estimated CRCL calculation 141 ml/min; Estimated Glomerular Filt Rate > 60; Glucose 243 mg/dL (65-110); Lipase 271 U/L (23-300); Potassium 3.6 mmol/L (3.4-5.0); Sodium 141 mmol/L (137-145)
[2024-04-27 14:59] LABS: Troponin I < 0.012 ng/mL (0.000-0.034)
[2024-04-27] MEDS: KETOROLAC 30 MG/ML VIAL (*BKC) IV PUSH (16:14)
[2024-04-27] MEDS: BELLADONNA ALK/PHENOB ELIX 10 ML, MAG HYDROX/ALUMINUM HYD/SIMETH 30 ML, LIDOCAINE HCL 2... PO (16:16)
--- NOTE | 2024-04-27 17:26 | ED.GENADULT ---
HPI - General Adult General Chief complaint: Shortness of Breath/Dyspnea Stated complaint: Sob Time Seen by Provider: 04/27/24 15:21 History of Present Illness HPI narrative: Patient is a 48-year-old female who presents ER with chest pain. [place]. Feels like some by sitting on her. Ongoing for 1 week. Was diagnosed with acute bronchitis in the other hospital want to keep her in the hospital but she left AMA due to lack of patient beds. Symptoms have persisted despite using albuterol. She has productive cough. Patient has been taking her omeprazole for reflux. No fevers or chills or sweats. No vomiting. No history of heart disease but reports her dad had an [place] at 39 years. Related Data Home Medications Medication Instructions Recorded Confirmed bupropion HCl 150 mg tablet,12 hr 150 mg PO BID 11/19/19 04/21/24 sustained-release furosemide 20 mg tablet 20 mg PO DAILY 11/19/19 04/21/24 losartan 50 mg tablet 50 mg PO DAILY 11/19/19 04/21/24 naltrexone 50 mg tablet 50 mg PO DAILY 11/19/19 04/21/24 norgestimate 0.25 mg-ethinyl 1 tablet PO DAILY 11/19/19 04/21/24 estradiol 35 mcg tablet (Sprintec (28)) sitagliptin phosphate 100 mg 100 mg PO DAILY 08/22/20 04/21/24 tablet (Januvia) gabapentin 100 mg capsule 100 mg PO DIRECTED 09/13/20 04/21/24 Allergies Allergy/AdvReac Type Severity Reaction Status Date / Time No Known Allergies Allergy Unknown Verified 04/27/24 14:15 Review of Systems Review of Systems: All systems reviewed & are unremarkable except as noted in HPI and below Constitutional: Constitutional: Reports no additional constitutional complaints ENT: Reports system reviewed and no additional complaints, except as documented Cardiovascular: Cardiovascular: Reports chest pain, Denies rapid heart rate and Denies radiating jaw, neck or arm pain Respiratory: Respiratory: Reports chest congestion, Reports cough, Denies dyspnea and Denies wheezing Gastrointestinal: Gastrointestinal: Reports no additional gastrointestinal complaints [facility] Past Medical History Medical History Alcohol abuse Arthritis Guo's cyst Right knee Diabetes GERD (gastroesophageal reflux disease) Hypertension Infected sebaceous cyst Obesity Surgical History Surgical History History of History of tubal ligation Family History Family History Father Heart disease Mother Kidney failure Social History Social History Smoking status: Never smoker Second hand tobacco smoke exposure: No Alcohol intake: former Alcohol use details: quit drinking about one month ago 2/2 diabetes Substance use: never Substance use type: does not use Living arrangements: with family Occupation/Education: occupation Gender identity (if verbalized by the patient): Female Sexual Orientation (if Verbalized by the Patient): Straight or Heterosexual Spiritual care concerns: No Exam Narrative: GENERAL: Well-appearing, well-nourished, and in no acute distress. HEAD: Normocephalic, atraumatic. ENT: Mucous membranes moist. NECK: Supple. CHEST: Clear to auscultation. No respiratory distress. HEART: Regular rate and rhythm. Normal peripheral pulses. ABDOMEN: Soft, nontender, nondistended EXTREMITIES: Normal range of motion. No edema. SKIN: Warm, dry, no rash. NEURO: Alert and oriented x3. PSYCH: Anxious with rapid speech. Course Course Emergency Course: Patient was complaining chest pain. The Toradol and GI cocktail did not help. Mild improvement with nebulizer treatment. Patient has not been on steroids for bronchitis we will prescribe some. Troponin negative. Discharged. Vital Signs Vital signs: Vital Signs Temperature 98.4 F 04/27/24 14:24 Pulse Rat
[2024-04-27] MEDS: IPRATROPIUM BR 0.02% INH SOLN 0.5 MG/2.5 ML VIAL INHALATION (17:57)
[2024-04-27] MEDS: ALBUTEROL SULFATE NEB 2.5 MG/3 ML INH INHALATION (17:57)
[2024-04-27 18:00] LABS: Troponin I < 0.012 ng/mL (0.000-0.034)
== END 2024-04-27 19:13 | disposition home or self-care (01) ==
PROVIDERS: Emergency Provider Emergency Medicine; PCP Physician Assistant
DX: J40 Bronchitis, not specified as acute or chronic (principal); I10 Essential (primary) hypertension; E11.9 Type 2 diabetes mellitus without complications; E66.9 Obesity, unspecified; Z68.33 Body mass index [BMI] 33.0-33.9, adult; M19.90 Unspecified osteoarthritis, unspecified site; K21.9 Gastro-esophageal reflux disease without esophagitis; Z79.84 Long term (current) use of oral hypoglycemic drugs; Z79.899 Other long term (current) drug therapy; R94.31 Abnormal electrocardiogram [ECG] [EKG]
CPT/HCPCS: 36415; 71046; 80053; 82948; 83690; 84484; 85025; 85610; 85730; 93005; 94640; 96374; 99284; A9270; J1885

== ENCOUNTER 2024-05-06 10:12 | Emergency (ER) | payer MEDICAID, SELFPAY ==
[2024-05-06 10:22] VITALS: BP 151/92; PULSE 87; RESP 16; TEMP 36.6; O2SAT 100
--- NOTE | 2024-05-06 10:39 | ED.URI ---
HPI - URI/Sore Throat General Chief Complaint: Upper Respiratory Infection Stated Complaint: cold no better than last visit Time Seen by Provider: 05/06/24 10:39 Source: patient Mode of arrival: ambulatory Limitations: no limitations History of Present Illness HPI Narrative: 48-year-old female presents with complaint of continued cough. States she has had a cough for 3 weeks. Patient states she was [facility], by her primary care physician and also in the ER for this cough. Has albuterol inhaler that she is using once or twice a day. States she does not like it due to making her feel jittery after using it. Patient recently took prednisone and finished doxycycline. Had chest x-ray April 27 that was negative for pneumonia. No shortness of breath or chest pain at this time. States had coughing fit at work that made her eyes water. Is currently not taking a cough suppressant. All systems reviewed and negative except as noted above. Related Data Home Medications Medication Instructions Recorded Confirmed bupropion HCl 150 mg tablet,12 hr 150 mg PO BID 11/19/19 05/06/24 sustained-release furosemide 20 mg tablet 20 mg PO DAILY 11/19/19 05/06/24 losartan 50 mg tablet 50 mg PO DAILY 11/19/19 05/06/24 naltrexone 50 mg tablet 50 mg PO DAILY 11/19/19 05/06/24 norgestimate 0.25 mg-ethinyl 1 tablet PO DAILY 11/19/19 05/06/24 estradiol 35 mcg tablet (Sprintec (28)) sitagliptin phosphate 100 mg 100 mg PO DAILY 08/22/20 05/06/24 tablet (Januvia) gabapentin 100 mg capsule 100 mg PO DIRECTED 09/13/20 05/06/24 Allergies Allergy/AdvReac Type Severity Reaction Status Date / Time No Known Allergies Allergy Unknown Verified 05/06/24 10:16 Review of Systems Review of Systems: CONSTITUTIONAL: Denies fever, chills, or sweats. EYES: Denies visual changes, redness, or discharge. ENT: Denies rhinorrhea, congestion, sore throat, or otalgia. CARDIOVASCULAR: Denies chest pain, palpitations, or edema. RESPIRATORY: Reports cough. Denies dyspnea. GASTROINTESTINAL: Denies abdominal pain, nausea, vomiting, or diarrhea. GENITOURINARY: Denies dysuria or hematuria. SKIN: Denies rash or itching. MUSCULOSKELETAL: Denies back pain, joint pain, or myalgia. NEUROLOGIC: Denies headache, numbness, or weakness. PSYCHIATRIC: Denies anxiety or depression. All other systems reviewed are negative, except as documented in HPI. [facility] Past Medical History Medical History Alcohol abuse Arthritis Guo's cyst Right knee Diabetes GERD (gastroesophageal reflux disease) Hypertension Infected sebaceous cyst Obesity Surgical History Surgical History History of History of tubal ligation Family History Family History Father Heart disease Mother Kidney failure Social History Social History Smoking status: Never smoker Second hand tobacco smoke exposure: No Alcohol intake: former Alcohol use details: quit drinking about one month ago 2/2 diabetes Substance use: never Substance use type: does not use Living arrangements: with family Occupation/Education: occupation Gender identity (if verbalized by the patient): Female Sexual Orientation (if Verbalized by the Patient): Straight or Heterosexual Spiritual care concerns: No Comments At time of signature, agree with nursing past medical, surgical, social and family history. There is no relevant family history pertinent to the presenting complaint. Exam Narrative: GENERAL: This is a well-nourished, well-developed patient, in no apparent distress. HEAD: normocephalic, atraumatic. EYES: PERRL. Sclera clear/white. Vision is grossly intact. EARS: External ears normal, auditory canals clear and without drainage
== END 2024-05-06 10:53 | disposition home or self-care (01) ==
PROVIDERS: Emergency Provider Nurse Practitioner Family; PCP Physician Assistant
DX: J20.9 Acute bronchitis, unspecified (principal); M19.90 Unspecified osteoarthritis, unspecified site; E11.9 Type 2 diabetes mellitus without complications; K21.9 Gastro-esophageal reflux disease without esophagitis; I10 Essential (primary) hypertension; E66.9 Obesity, unspecified; Z68.33 Body mass index [BMI] 33.0-33.9, adult
CPT/HCPCS: 99213; G0463

== ENCOUNTER 2024-05-28 08:08 | Emergency (ER) | payer OTHER, SELFPAY ==
[2024-05-28 08:18] VITALS: BP 140/78; PULSE 79; RESP 20; TEMP 36.5; O2SAT 100
--- NOTE | 2024-05-28 08:19 | ED.GENADULT ---
HPI - General Adult General Chief complaint: Urogenital-Female Stated complaint: UTI Time Seen by Provider: 05/28/24 08:19 Source: patient, RN notes reviewed and old records reviewed Mode of arrival: ambulatory Limitations: no limitations History of Present Illness HPI narrative: Patient presents to [facility] with complaints of lower back pain, bilateral that radiates to left groin. She reports some urinary frequency. All symptoms have been present for approximately 2-3 days. She does report that she has a left-sided labral tear that she follows with a specialist for. Appointment to follow-up regarding this is next week. She reports that she stands on a hard surface at work, states that this is aggravating her pain. She reports that if she could be off work until Saturday she believes she would feel much better. She is requesting work note. She took azo for her symptoms, no relief. Last menstrual period 1 week ago, denies any vaginal discharge. Denies any injury or trauma. Denies any fever, chills, sweats. Related Data Home Medications Medication Instructions Recorded Confirmed bupropion HCl 150 mg tablet,12 hr 150 mg PO BID 11/19/19 05/06/24 sustained-release furosemide 20 mg tablet 20 mg PO DAILY 11/19/19 05/06/24 losartan 50 mg tablet 50 mg PO DAILY 11/19/19 05/06/24 naltrexone 50 mg tablet 50 mg PO DAILY 11/19/19 05/06/24 norgestimate 0.25 mg-ethinyl 1 tablet PO DAILY 11/19/19 05/06/24 estradiol 35 mcg tablet (Sprintec (28)) sitagliptin phosphate 100 mg 100 mg PO DAILY 08/22/20 05/06/24 tablet (Januvia) gabapentin 100 mg capsule 100 mg PO DIRECTED 09/13/20 05/06/24 Allergies Allergy/AdvReac Type Severity Reaction Status Date / Time No Known Allergies Allergy Unknown Verified 05/28/24 08:15 Review of Systems Review of Systems: All systems reviewed & are unremarkable except as noted in HPI and below Constitutional: Constitutional: Reports no additional constitutional complaints ENT: Reports system reviewed and no additional complaints, except as documented Cardiovascular: Cardiovascular: Reports no additional cardiovascular complaints Respiratory: Respiratory: Reports no additional respiratory complaints Gastrointestinal: Gastrointestinal: Reports no additional gastrointestinal complaints Genitourinary: Genitourinary: Denies urinary incontinence, Reports urinary urgency and Denies vaginal discharge Musculoskeletal: Musculoskeletal: Reports back pain [facility] Past Medical History Medical History Alcohol abuse Arthritis Guo's cyst Right knee Diabetes GERD (gastroesophageal reflux disease) Hypertension Infected sebaceous cyst Obesity Surgical History Surgical History History of History of tubal ligation Family History Family History Father Heart disease Mother Kidney failure Social History Social History Smoking status: Never smoker Second hand tobacco smoke exposure: No Alcohol intake: former Alcohol use details: quit drinking about one month ago 2/2 diabetes Substance use: never Substance use type: does not use Living arrangements: with family Occupation/Education: occupation Gender identity (if verbalized by the patient): Female Sexual Orientation (if Verbalized by the Patient): Straight or Heterosexual Spiritual care concerns: No Comments At the time of my signature, I reviewed and agree with the nursing past medical, surgical, social, and family history. There is no relevant family history pertinent to the patient complaint. Exam Const: General: cooperative, no acute distress, alert and awake Orientation/consciousness: oriented to person, oriented to place and oriented to time HENMT: Head: normal
[2024-05-28 08:43] LABS: EDUAAPPEAR Clear; EDUABILI 1+; EDUABLOOD Negative; EDUACOLOR1 Dark; EDUAGLUCOSE Negative; EDUAKETONE Negative; EDUALEUKO Negative; EDUANITRATE Negative; EDUAPH 5.5; EDUAPROTEIN 1+
== END 2024-05-28 08:45 | disposition home or self-care (01) ==
PROVIDERS: Emergency Provider Nurse Practitioner Family; PCP Physician Assistant Medical
DX: M54.50 Low back pain, unspecified (principal); M19.90 Unspecified osteoarthritis, unspecified site; E11.9 Type 2 diabetes mellitus without complications; K21.9 Gastro-esophageal reflux disease without esophagitis; I10 Essential (primary) hypertension; E66.9 Obesity, unspecified; Z68.33 Body mass index [BMI] 33.0-33.9, adult
CPT/HCPCS: 81003; 99213; G0463

== ENCOUNTER 2024-08-17 23:39 | Emergency (ER) | payer OTHER, SELFPAY ==
[2024-08-17 23:58] VITALS: BP 154/99; PULSE 115; RESP 18; TEMP 37.2; O2SAT 99
[2024-08-18 00:13] LABS: Basophils Absolute Auto 0.1 K/mm3 (0.0-0.1); Basophils Percent Auto 1.5 % (0.2-1.2); Eosinophils Absolute Auto 0.4 K/mm3 (0-0.3); Eosinophils Percent Auto 4.2 % (0-4.4); Hematocrit 34.5 % (37.0-47.0); Hemoglobin 10.7 g/dL (12.0-15.0); Immature Granulocyte Absolute 0.05 K/mm3 (0.00-0.031); Immature Granulocyte Percent A 0.5 % (0-0.5); Lymphocytes Absolute Auto 3.86 K/mm3 (0.9-3.2); Lymphocytes Percent Auto 40.1 % (18.3-44.2); Mean Corpuscular Hemoglobin 25.1 pg (26-34); Mean Platelet Volume 9.8 fl (7.4-10.4); Monocytes Absolute Auto 0.5 K/mm3 (0.1-0.6); Monocytes Percent Auto 5.5 % (2.6-8.5); Neutrophils Absolute Auto 4.7 K/mm3 (1.3-6.7); Neutrophils Percent Auto 48.2 % (45.5-73.1); Platelet Count Result 284 k/mm3 (150-375); Red Blood Count 4.26 M/mm3 (4.2-5.4); Red Cell Distribution Width 18.7 % (11.5-14.5); White Blood Count 9.6 K/mm3 (4.5-10.0)
[2024-08-18 00:25] LABS: Add Urine Microscopic? YES; Appearance Urine Cloudy (Clear); Bacteria Urine 1+ /hpf; Bilirubin Urine Negative (Negative); Blood Urine 1+ (Negative); Color Urine Yellow (Yellow); Glucose Urine UA 3+ mg/dL (Negative); Ketones Urine Trace mg/dL (Negative); Leukocyte Esterase Ur Negative LEU/UL (Negative); Nitrate Urine Negative (Negative); Non Pathogenic Casts 0-2; Protein Urine Trace mg/dL (Negative); RBC Urine 0-2 /hpf (0-2); Specific Grav Ur 1.026 (1.001-1.035); Squamous Epithelial Cell Urine Few /hpf (Few); WBC Urine 0-5 /hpf (0-3); pH Urine 5.5 (5.0-9.0)
[2024-08-18 00:28] LABS: Alanine Aminotransferase 63 U/L (6-35); Albumin Level 4.3 g/dL (3.5-5.1); Alkaline Phosphatase 88 U/L (38-126); Anion Gap 16 mmol/L (4-12); Aspartate Amino Transferase 143 U/L (14-36); Bilirubin,Total 0.6 mg/dL (0.2-1.3); Blood Urea Nitrogen 4 mg/dL (7-17); Calcium 9.8 mg/dL (8.4-10.2); Carbon Dioxide 24 mmol/L (22-30); Chloride 99 mmol/L (98-107); Estimated CRCL calculation 102 ml/min; Estimated Glomerular Filt Rate > 60; Glucose 353 mg/dL (65-110); Lipase 285 U/L (23-300); Potassium 3.5 mmol/L (3.4-5.0); Sodium 139 mmol/L (137-145)
--- NOTE | 2024-08-18 00:31 | ECG_ITS ---
Test Date: 2024-08-18 00:35:10 Measurements Intervals [place] Rate: 96 P: 57 RI: 188 QRS: -18 QRSD: 96 T: 31 QT: 355 QTc: 450 Interpretive Statements SINUS RHYTHM LEFT VENTRICULAR HYPERTROPHY AND ST-T CHANGE [VOLTAGE CRITERIA PLUS ST/T ABNORMALITY] Compared to ECG 04/27/2024 14:19:27 Left ventricular hypertrophy now present ST (T wave) deviation now present T-wave abnormality no longer present Electronically Signed On 08-18-2024 10:08:35 CDT by Jos Carrizales M.D.
--- NOTE | 2024-08-18 00:38 | PC.NURSE ---
Pt approached triage desk asking about wait times. This RN told pt I can not give out a wait time because it could possibly change. Pt then stated Well now I am having chest pain. EKG performed in triage bay and shown to Dr. Bowling. Pt placed back in waiting room.
--- NOTE | 2024-08-18 01:51 | PC.NURSE ---
Pt approached triage desk asking about a wait time. Pt was told that I can not give out a wait time and she stated she is leaving.
== END 2024-08-18 00:35 | disposition left against medical advice (07) ==
LOC: ANHED 08-18 02:15
PROVIDERS: Emergency Provider Emergency Medicine; PCP Physician Assistant Medical
DX: M54.9 Dorsalgia, unspecified (principal)
CPT/HCPCS: 36415; 80053; 81001; 81025; 83690; 85025; 93005; 99199

== ENCOUNTER 2024-08-26 15:16 | Emergency (ER) | payer OTHER, SELFPAY ==
--- NOTE | 2024-08-26 15:20 | PC.NURSE ---
PT TAKEN TO ROOM 4 FOR TRIAGE EXAM. PT C/O SEVERE RUQ PAIN AND L EYE PAIN, PT CRYING, MOANING, AND FIDGETING. PT'S AT BS AND STATES HE WILL JUST TAKE HER TO THE ER AGAIN BC THEY WENT TO OTHER NIGHT AND LWBS, WE WAITED FOR HOURS AND THEY WOULDN'T SEE US. YOU PEOPLE THINK SOMEONE CAN'T FROM PAIN SO YOU DON'T HELP HER. PT AND HER UPSET AND LEFT WITHOUT BEING SEEN BY PROVIDER, PRIOR TO COMPLETING TRIAGE.
[2024-08-26 15:24] VITALS: BP 142/107; PULSE 120; RESP 16; TEMP 36.6; O2SAT 98
== END 2024-08-26 15:29 | disposition left against medical advice (07) ==
LOC: EXPCOLL 15:19
PROVIDERS: Emergency Provider Nurse Practitioner Family
DX: Z53.21 Procedure and treatment not carried out due to patient leaving prior to being seen by health care provider (principal)
CPT/HCPCS: 99199

== ENCOUNTER 2024-08-26 15:43 | Emergency (ER) | payer OTHER, SELFPAY ==
[2024-08-26] VITALS (14 sets, daily range): BP systolic 128–166; BP diastolic 63–98; PULSE 92–110; RESP 16–20; TEMP 36.6; O2SAT 93–100
--- NOTE | ~2024-08-26 | CT_ITS ---
CLINICAL INDICATION: Right-sided abdominal pain with nausea and vomiting. COMPARISON: 04/04/2023. TECHNIQUE: An enhanced CT of the abdomen and pelvis was performed utilizing multislice spiral Lemur IMS ue reconstructed at 2.5 mm slice thickness. Coronal and sagittal reconstructions were performed. DLP: 1302.3 mGy - cm FINDINGS/OBSERVATIONS: Visualized lower thorax:The bilateral lung bases are clear. The heart is normal size, without pericardial effusion. Liver: The liver demonstrates decreased attenuation (consistent with fatty infiltration) and is marke dly enlarged measuring 24 cm in longitudinal dimension, unchanged from prior. Gallbladder and biliary system: The gallbladder is distended, but otherwise unremarkable. No pericholecystic fluid or gallbladder wall thickening is appreciated. Pancreas: The pancreas is not enlarged. No pancreatic ductal dilatation is appreciated. Preservation of the normal fat planes are present. Spleen: The spleen is enlarged measuring 12 cm in longitudinal dimension. Kidneys: Bilateral kidneys enhance symmetrically. No hydronephrosis or renal calculi. Adrenal glands: Unremarkable. Gastrointestinal tract: Colonic diverticulosis without surrounding inflammatory change, specifically within the left lower quadrant. Appendix:The appendix is not definitively visualized. However, no pericecal inflammatory change is id entified suggest the presence of acute appendicitis. Vasculature: Calcified atherosclerotic disease. The IVC is patent. Lymph nodes: Redemonstration of an enlarged lymph node within the gayla hepatis measuring 13 mm in sh ort axis dimension (series 3, image 75), unchanged from prior. Scattered nonpathologically enlarged lymph nodes within the retroperitoneum, a nonspecific finding. Pelvic structures:Redemonstration of a fibroid uterus. Increase in size of the bilateral well-circumscribed foci of decreased attenuation within the bilater al ovaries, when compared with previous study performed 04/04/2023. The largest on the left measures 18.6 mm. The largest on the right measures 28 x 24 mm, and contains multiple bulky calcifications, unchanged f rom prior. Body wall and musculoskeletal: Small fat-containing umbilical hernia. No significant degenerative disease within the lumbosacral spine. IMPRESSION: Fibroid uterus with increase in size of the bilateral simple and slightly complex cysts within the ov pamella for which focused pelvic ultrasound may be performed for confirmation. Fatty infiltration of an enlarged liver. Gallbladder distention, without surrounding inflammatory change. Reviewed, dictated and finalized at location A. IMPRESSION: Fibroid uterus with increase in size of the bilateral simple and slightly compl ex cysts within the ovaries for which focused pelvic ultrasound may be performe d for confirmation. Fatty infiltration of an enlarged liver. Gallbladder distention, without surrounding inflammatory change.
--- NOTE | ~2024-08-26 | US_ITS ---
EXAM: ABDOMEN ULTRASOUND HISTORY: RUQ TTP, follow up CT COMPARISON: Reference is made to a CT examination of the abdomen and pelvis performed earlier on the same day FINDINGS: LIVER: The liver is increased in echogenicity and size (extending off the curved array ultrasound pro be, inhibiting its complete measurement). GALLBLADDER: The gallbladder is hydropic in length measuring 11 to 12 cm. The transverse measurement of the gallbladder is from 4-6 cm on the submitted images. No gallbladder wall thickening or pericholecystic fluid. BILE DUCTS: Common bile duct measures 4.7mm. PANCREAS: Limited evaluation of the pancreas secondary to overlying bowel gas RIGHT KIDNEY: Despite prolonged interrogation, the right kidney, aorta and inferior vena cava were no t visualized. IMPRESSION: Hydropic gallbladder, without gallbladder wall thickening or pericholecystic fluid. Reviewed, dictated and finalized at location A. IMPRESSION: Hydropic gallbladder, without gallbladder wall thickening or pericholecystic fl uid.
--- NOTE | 2024-08-26 15:57 | ED.ABDPAIN ---
HPI - Abdominal Pain General Chief Complaint: Abdominal Pain <DHARMESH Walden Last Filed: 08/26/24 16:05> Stated Complaint: RLQ pain, L eye pain/swelling <DHARMESH Walden Last Filed: 08/26/24 16:05> Time Seen by Provider: 08/26/24 15:57 <DHARMESH Walden Last Filed: 08/26/24 16:05> Focused HPI: Patient is a 49 y/o female, with PMH of DM, GERD, who presents to the ED with c/o RUQ abd pain. Patient reports pain has been ongoing for some time, but became worse today. Has not taken anything for the pain. States she has been drinking alcohol to try to help with the pain. She drank 6 shots today. Reports N/V/D, unable to keep down food or drink. Denies fever, rectal bleeding, melena. States she was told her gallbladder was enlarged 1.5 years ago at a hospital in [place] and was told she needed to have her GB removed, but elected not to have surgery at that time. GENERAL: Uncomfortable-appearing, obese with BMI of 32.0, and in no acute distress. HEAD: Normocephalic, atraumatic. CHEST: Clear to auscultation. ?No respiratory distress. HEART: Tachycardic with regular rhythm.? ABD: Focal TTP in RUQ, voluntary guarding. Normoactive BS. NEURO: ?Alert and oriented x3. Patient screened in triage and initial orders placed.? ?Additional care and disposition to be based upon?diagnostic testing and treatment. <DHARMESH Walden Last Filed: 08/26/24 16:05> Source: patient <DHARMESH Walden Last Filed: 08/26/24 16:05> Mode of arrival: ambulatory <DHARMESH Walden Last Filed: 08/26/24 16:05> Limitations: no limitations <DHARMESH Walden Last Filed: 08/26/24 16:05> History of Present Illness HPI narrative: Agree with HPI above <DHARMESH Sr Last Filed: 08/27/24 01:29> Related Data Home Medications: Home Medications Medication Instructions Recorded Confirmed bupropion HCl 150 mg tablet,12 hr 150 mg PO BID 11/19/19 08/26/24 sustained-release furosemide 20 mg tablet 20 mg PO DAILY 11/19/19 08/26/24 losartan 50 mg tablet 50 mg PO DAILY 11/19/19 08/26/24 naltrexone 50 mg tablet 50 mg PO DAILY 11/19/19 08/26/24 norgestimate 0.25 mg-ethinyl 1 tablet PO DAILY 11/19/19 08/26/24 estradiol 35 mcg tablet (Sprintec (28)) sitagliptin phosphate 100 mg 100 mg PO DAILY 08/22/20 08/26/24 tablet (Januvia) gabapentin 100 mg capsule 100 mg PO DIRECTED 09/13/20 08/26/24 <Ruth Dai PA-C - Last Filed: 08/26/24 16:05> Allergies/Adverse Reactions: Allergies Allergy/AdvReac Type Severity Reaction Status Date / Time No Known Allergies Allergy Unknown Verified 08/26/24 15:23 <Ruth Dai PA-C - Last Filed: 08/26/24 16:05> Review of Systems Review of Systems: All systems as dictated in HPI <DHARMESH Sr Last Filed: 08/27/24 01:29> [facility] Past Medical History Medical History: Medical History Alcohol abuse Arthritis Guo's cyst Right knee Diabetes GERD (gastroesophageal reflux disease) Hypertension Infected sebaceous cyst Obesity <DHARMESH Waledn Last Filed: 08/26/24 16:05> Surgical History Surgical History: Surgical History History of History of tubal ligation <DHARMESH Walden Last Filed: 08/26/24 16:05> Family History Family History: Family History Father Heart disease Mother Kidney failure <Ruth Dai PA-C - Last Filed: 08/26/24 16:05> Social History Social History: Social History Smoking status: Never smoker Second hand tobacco smoke exposure: No Alcohol intake: former Alcohol use details: quit drinking about one month ago /2 diabet
[2024-08-26 16:33] LABS: Basophils Absolute Auto 0.1 K/mm3 (0.0-0.1); Basophils Percent Auto 1.5 % (0.2-1.2); Eosinophils Absolute Auto 0.2 K/mm3 (0-0.3); Eosinophils Percent Auto 2.2 % (0-4.4); Hematocrit 37.2 % (37.0-47.0); Hemoglobin 11.8 g/dL (12.0-15.0); Immature Granulocyte Absolute 0.03 K/mm3 (0.00-0.031); Immature Granulocyte Percent A 0.4 % (0-0.5); Lymphocytes Absolute Auto 2.25 K/mm3 (0.9-3.2); Lymphocytes Percent Auto 27.2 % (18.3-44.2); Mean Corpuscular HGB Conc 31.7 g/dl (32-36); Mean Corpuscular Hemoglobin 25.4 pg (26-34); Mean Corpuscular Volume 80.2 fl (80-100); Mean Platelet Volume 10.4 fl (7.4-10.4); Monocytes Absolute Auto 0.5 K/mm3 (0.1-0.6); Neutrophils Absolute Auto 5.2 K/mm3 (1.3-6.7); Neutrophils Percent Auto 62.7 % (45.5-73.1); Platelet Count Result 181 k/mm3 (150-375); Red Blood Count 4.64 M/mm3 (4.2-5.4); Red Cell Distribution Width 19.1 % (11.5-14.5); White Blood Count 8.3 K/mm3 (4.5-10.0)
[2024-08-26 16:56] LABS: Alanine Aminotransferase 43 U/L (6-35); Albumin Level 4.5 g/dL (3.5-5.1); Alkaline Phosphatase 105 U/L (38-126); Anion Gap 20 mmol/L (4-12); Aspartate Amino Transferase 67 U/L (14-36); Bilirubin,Total 1.1 mg/dL (0.2-1.3); Blood Urea Nitrogen 5 mg/dL (7-17); Calcium 8.4 mg/dL (8.4-10.2); Carbon Dioxide 17 mmol/L (22-30); Chloride 98 mmol/L (98-107); Estimated CRCL calculation 140 ml/min; Estimated Glomerular Filt Rate > 60; Glucose 373 mg/dL (65-110); Lipase 149 U/L (23-300); Potassium 4.2 mmol/L (3.4-5.0); Sodium 135 mmol/L (137-145)
[2024-08-26 16:56] LABS: Add Urine Microscopic? YES; Appearance Urine Clear (Clear); Bacteria Urine None Seen /hpf; Bilirubin Urine Negative (Negative); Blood Urine Trace (Negative); Color Urine Yellow (Yellow); Glucose Urine UA 3+ mg/dL (Negative); Hyaline Casts Urine Present /lpf; Ketones Urine Trace mg/dL (Negative); Leukocyte Esterase Ur Negative LEU/UL (Negative); Nitrate Urine Negative (Negative); Protein Urine 2+ mg/dL (Negative); RBC Urine 0-2 /hpf (0-2); Specific Grav Ur 1.026 (1.001-1.035); Squamous Epithelial Cell Urine None Seen /hpf (Few); Urobilinogen Urine 0.2 mg/dL (<2.0); WBC Urine 0-5 /hpf (0-3); pH Urine 5.5 (5.0-9.0)
[2024-08-26 16:59] LABS: Ethanol 353 mg/dL (<10)
[2024-08-26] MEDS: ONDANSETRON INJ 4 MG/2 ML VIAL IV PUSH (19:54)
[2024-08-26] MEDS: MORPHINE SULFATE (*CRX) 4 MG/ML INJ IV PUSH (20:28)
[2024-08-26] MEDS: LACTATED RINGERS 1,000 ML 999 ML IV CONT ×3 (20:28→20:29)
[2024-08-26] MEDS: ONDANSETRON INJ 4 MG/2 ML VIAL ×2 (20:36→20:59)
--- NOTE | 2024-08-26 21:03 | PC.NURSE ---
pt verbalized that she is a minimum of 10 shots per day drinking and drinks until she blacks out/passes out.
[2024-08-26 21:21] LABS: Fractional Inspired Oxygen 21 %; PCO2 VBG 32.5 mmHg (42.0-48.0); PO2 VBG 44.9 mmHg (35.0-45.0); pH VBG 7.311 (7.300-7.400)
[2024-08-26 21:22] LABS: Device ROOM AIR
[2024-08-26 21:25] LABS: Beta-Hydroxybutyrate/Acetoacetate 0.22 mmol/L (0.02-0.27)
[2024-08-26 21:26] LABS: Hemoglobin A1C 8.5 % (<5.7)
[2024-08-26 22:51] LABS: Anion Gap 18 mmol/L (4-12); Blood Urea Nitrogen 5 mg/dL (7-17); Calcium 7.8 mg/dL (8.4-10.2); Carbon Dioxide 15 mmol/L (22-30); Chloride 97 mmol/L (98-107); Estimated CRCL calculation 170 ml/min; Estimated Glomerular Filt Rate > 60; Glucose 231 mg/dL (65-110); Potassium 4.2 mmol/L (3.4-5.0); Sodium 130 mmol/L (137-145)
[2024-08-26] MEDS: LORazepam INJ (*CRX) 2 MG/ML VIAL 1 MG IV PUSH (23:05)
[2024-08-26] MEDS: LORazepam INJ (*CRX) 2 MG/ML VIAL 0.5 MG IV PUSH (23:57)
== END 2024-08-27 00:41 | disposition home or self-care (01) ==
PROVIDERS: Physician Assistant; Emergency Provider Physician Assistant
DX: R10.11 Right upper quadrant pain (principal); E11.65 Type 2 diabetes mellitus with hyperglycemia; F10.139 Alcohol abuse with withdrawal, unspecified; Y90.8 Blood alcohol level of 240 mg/100 ml or more; I10 Essential (primary) hypertension; E66.9 Obesity, unspecified; Z68.32 Body mass index [BMI] 32.0-32.9, adult; K21.9 Gastro-esophageal reflux disease without esophagitis; M19.90 Unspecified osteoarthritis, unspecified site; Z79.84 Long term (current) use of oral hypoglycemic drugs; Z79.899 Other long term (current) drug therapy; D25.9 Leiomyoma of uterus, unspecified; K76.0 Fatty (change of) liver, not elsewhere classified; K82.8 Other specified diseases of gallbladder; N83.202 Unspecified ovarian cyst, left side; N83.201 Unspecified ovarian cyst, right side
CPT/HCPCS: 36415; 74177; 76705; 80048; 80053; 81001; 82010; 82077; 82803; 83036; 83690; 85025; 96361; 96374; 96375; 96376; 99284; J2060; J2270; J2405; J7120; Q9967

== ENCOUNTER 2025-07-20 12:53 | Emergency (ER) | payer OTHER, SELFPAY ==
[2025-07-20 12:59] VITALS: BP 153/94; PULSE 91; RESP 16; TEMP 36.1; O2SAT 100
--- NOTE | 2025-07-20 13:34 | ED.SKABFB ---
HPI - Skin/Abscess/Foreign Bdy General Chief complaint: Skin/Abscess/Foreign Body Stated complaint: Insect Bite on Stomach Time Seen by Provider: 07/20/25 13:34 Source: patient Mode of arrival: ambulatory Limitations: no limitations History of Present Illness HPI narrative: 50-year-old female with hx psoriasis presented for complaint of a possible insect bite to the left lower abdomen. Onset 3 days. Endorses redness and tenderness to the site. Denies active drainage. She says she had a scab to the site which was pulled off by her shirt. Concerned for spider bite. Denies streaking, n/v/d/f/c. Pt also reports a red itchy dry rash to bilateral buttocks. says she had something similar in the past, but says it is not similar to her psoriasis. Has not applied anything to the skin for treatment. Denies lip, tongue, or throat swelling, shortness of breath or wheezing. Denies changes to soap, detergent, lotion, or any other exposures. No one else in the house or any contacts with similar symptoms. Related Data Home Medications ?Medication ?Instructions ?Recorded ?Confirmed ?Last Taken ?Type bupropion HCl 150 mg tablet,12 hr 150 mg PO BID 11/19/19 08/26/24 01/21/22 History sustained-release furosemide 20 mg tablet 20 mg PO DAILY 11/19/19 08/26/24 02/07/22 History losartan 50 mg tablet 50 mg PO DAILY 11/19/19 08/26/24 02/14/22 History naltrexone 50 mg tablet 50 mg PO DAILY 11/19/19 08/26/24 02/09/22 History norgestimate 0.25 mg-ethinyl 1 tablet PO DAILY 11/19/19 08/26/24 02/07/22 History estradiol 0.035 mg tablet (Sprintec (28)) sitagliptin phosphate 100 mg 100 mg PO DAILY 08/22/20 08/26/24 02/07/22 History tablet (Januvia) gabapentin 100 mg capsule 100 mg PO DIRECTED 09/13/20 08/26/24 02/09/22 History Allergies Allergy/AdvReac Type Severity Reaction Status Date / Time No Known Allergies Allergy Unknown Verified 07/20/25 12:58 Review of Systems Review of Systems: CONSTITUTIONAL: Denies body aches, fever, chills, or sweats. EYES: Denies visual changes, redness, or discharge. ENT: Denies rhinorrhea, congestion CARDIOVASCULAR: Denies chest pain, palpitations, or edema. RESPIRATORY: Denies cough or dyspnea. GASTROINTESTINAL: Denies abdominal pain, nausea, vomiting, or diarrhea. SKIN: reports rash to abdominal wound MUSCULOSKELETAL: Denies back pain, joint pain, or myalgia. NEUROLOGIC: Denies headache, numbness, tingling, or weakness. [facility] Past Medical History Medical History Alcohol abuse Arthritis Guo's cyst Right knee Diabetes GERD (gastroesophageal reflux disease) Hypertension Infected sebaceous cyst Obesity Surgical History Surgical History History of History of tubal ligation Family History Family History Father Heart disease Mother Kidney failure Social History Social History Smoking status: Never smoker Second hand tobacco smoke exposure: No Alcohol intake: former Alcohol use details: quit drinking about one month ago 2/2 diabetes Substance use: never Substance use type: does not use Living arrangements: with family Occupation/Education: occupation Gender identity (if verbalized by the patient): Female Sexual Orientation (if Verbalized by the Patient): Straight or Heterosexual Spiritual care concerns: No Comments At time of signature, I have reviewed and agree with nursing past medical, surgical, social and family history unless otherwise noted. Please see nursing chart for further information. There is no relevant family history pertinent to the presenting complaint Exam Narrative: GENERAL: Well-appearing HEAD: Normocephalic, atraumatic. EYES: conjunctivae clear, and EOMI. ENT: Mucous membranes moist. Oropharynx without edema, erythema or lesions. NECK: Supple. No lymphadenopathy CHEST: Clear to auscultation. HEART: Regular rate and rhythm. SKIN: Warm, dry. Left lower abdominal wound 1.5cm diameter area of erythema with 0.5cm wound bed center is yellow in color, wound is dry, no drainage or fluctuance. Mild tender. Bilateral buttocks with erythematous papular dry/scaly rash, no drainage, nontender. BUEs and BLEs with dry light erythematous patches c/w psoriasis. NEURO: Alert and oriented x3. Course Course Emergency Course: Patient is aware of diagnosis, understands and agrees to treatment plan. Anticipatory guidance given. Patient agrees to follow-up as directed and is aware of reasons to seek care at the emergency department. Portions of this record may have been created with voice recognition software Level of Care: Express Care Visit Vital Signs Vital signs: Vital Signs Temperature 97.0 F L 07/20/25 12:59 Pulse Rate 91 07/20/25 12:59 Respiratory Rate 16 07/20/25 12:59 Blood Pressure 153/94 H 07/20/25 12:59 Pulse Oximetry 100 07/20/25 12:59 Oxygen Delivery Room Air 07/20/25 12:59 Temperature 97.0 F L 07/20/25 12:59 Pulse Rate 91 07/20/25 12:59 Respiratory Rate 16 07/20/25 12:59 Blood Pressure 153/94 H 07/20/25 12:59 Pulse Oximetry 100 07/20/25 12:59 Oxygen Delivery Room Air 07/20/25 12:59 Reviewed MDM - Skin/Abscess/Foreign Bdy MDM Narrative Medical decision making narrative: Discussed physical exam findings; Consistent with abscess to the left lower abdomen and dermatitis to the buttocks. Reviewed RX. Pt is scheduled with derm in 6 days. Rx triamcinolone cream for buttocks and abx for abdominal wound. Advised supportive measures and signs/symptoms to go to the ER. Pt is appropriate for outpt treatment and f/u. Differential Diagnosis Differential diagnosis: Likely abscess of skin or subcutaneous tissue, viral exanthem, dermatophytosis, urticaria, herpes zoster, cellulitis, eczema, insect bites, impetigo and contact dermatitis Discharge Plan Discharge Clinical Impression: Abscess of skin or subcutaneous tissue, Dermatitis Patient Disposition: Home Condition: Stable Instructions: Antibiotic Form, Abscess (ED), Dermatitis (ED) Additional Instructions: Cleanse daily. Use gentle, unscented soaps and detergents. Warm compresses at least 4 times a day to the site to help expel any additional drainage. Keep your abdominal wound covered if draining Take antibiotic as directed Tylenol and ibuprofen every 8 hours for pain as needed Use skin cream as prescribed to reduce itchiness of the rash Avoid scratching when possible to prevent worsening of the condition and disruption of the skin that could lead to bacterial infection To relieve itching, place a cool washcloth or some ice over the area that itches, rather than scratching Follow up with your account specialist as scheduled Go to the Emergency Department immediately if you develop any of the following symptoms: Fevers, Increased redness, pain, or swelling around where your abscess was, generalized weakness or vomiting or any other concerns Patient Language: Peruvian Prescriptions: New triamcinolone acetonide 0.1 % cream 1 applic topical BID 7 Days Qty: 80 0RF Rx Instructions: to rash cephalexin 500 mg capsule 500 mg PO Q8H 7 Days Qty: 21 0RF No Action naproxen 500 mg tablet 500 mg PO BID PRN (Reason: pain) Qty: 30 0RF Januvia 100 mg tablet 100 mg PO DAILY gabapentin 100 mg capsule 100 mg PO DIRECTED loratadine [Allerclear] 10 mg tablet 10 mg PO DAILY Qty: 30 0RF metformin 500 mg tablet 500 mg PO DAILY Qty: 10 0RF losartan 50 mg tablet 50 mg PO DAILY bupropion HCl 150 mg tablet sustained-release 12 hr 150 mg PO BID norgestimate-ethinyl estradiol [Sprintec (28)] 0.25-35 mg-mcg tablet 1 tablet PO DAILY naltrexone 50 mg tablet 50 mg PO DAILY furosemide 20 mg tablet 20 mg PO DAILY Follow-up/Referrals: Vimal,ALESSIA Jacobs [Primary Care Provider, Unknown]
== END 2025-07-20 13:48 | disposition home or self-care (01) ==
PROVIDERS: Emergency Provider Nurse Practitioner Family; PCP Physician Assistant Medical
DX: L02.211 Cutaneous abscess of abdominal wall (principal); L30.9 Dermatitis, unspecified; M19.90 Unspecified osteoarthritis, unspecified site; E11.9 Type 2 diabetes mellitus without complications; Z79.84 Long term (current) use of oral hypoglycemic drugs; I10 Essential (primary) hypertension; K21.9 Gastro-esophageal reflux disease without esophagitis; E66.9 Obesity, unspecified; Z68.32 Body mass index [BMI] 32.0-32.9, adult
CPT/HCPCS: 99213; G0463

== ENCOUNTER 2025-08-25 11:28 | Emergency (ER) | payer OTHER, SELFPAY ==
[2025-08-25 11:44] VITALS: BP 131/83; PULSE 93; RESP 18; TEMP 36.4; O2SAT 100
--- NOTE | 2025-08-25 12:22 | ED.SKABFB ---
HPI - Skin/Abscess/Foreign Bdy General Chief complaint: Skin/Abscess/Foreign Body Stated complaint: rash Time Seen by Provider: 08/25/25 12:05 Source: patient and RN notes reviewed Mode of arrival: ambulatory Limitations: no limitations History of Present Illness HPI narrative: 50-year-old female patient with history of diabetes and high blood pressure presents today complaining of a one-month history of severely pruritic rash to the bilateral legs, low back and abdomen. She has previously diagnosed with psoriasis by her PCP and was treated with clobetasol which has not been helping. She was referred to Dermatology, but this visit was not covered by her insurance. States rash has spread significantly since her last PCP visit and now sandoval when she sweats. She does not have another PCP visit for 3 more weeks. She is also complaining of external vulvar itching and burning and believe she has a yeast infection. She has tried OTC treatment without improvement. Related Data Home Medications ?Medication ?Instructions ?Recorded ?Confirmed ?Last Taken ?Type bupropion HCl 150 mg tablet,12 hr 150 mg PO BID 11/19/19 08/26/24 01/21/22 History sustained-release furosemide 20 mg tablet 20 mg PO DAILY 11/19/19 08/26/24 02/07/22 History losartan 50 mg tablet 50 mg PO DAILY 11/19/19 08/26/24 02/14/22 History naltrexone 50 mg tablet 50 mg PO DAILY 11/19/19 08/26/24 02/09/22 History norgestimate 0.25 mg-ethinyl 1 tablet PO DAILY 11/19/19 08/26/24 02/07/22 History estradiol 0.035 mg tablet (Sprintec (28)) sitagliptin phosphate 100 mg 100 mg PO DAILY 08/22/20 08/26/24 02/07/22 History tablet (Januvia) allopurinol 100 mg tablet mg 08/25/25 Unknown History amlodipine 10 mg tablet mg 08/25/25 Unknown History atorvastatin 80 mg tablet mg 08/25/25 Unknown History dulaglutide 1.5 mg/0.5 mL mg subcut 08/25/25 Unknown History subcutaneous pen injector (Trulicity) ferrous sulfate 325 mg (65 mg mg 08/25/25 Unknown History iron) tablet (FeroSul) gabapentin 300 mg capsule mg 08/25/25 Unknown History omeprazole 40 mg capsule,delayed mg 08/25/25 Unknown History release Allergies Allergy/AdvReac Type Severity Reaction Status Date / Time No Known Allergies Allergy Unknown Verified 08/25/25 11:51 PMFSH Past Medical History Medical History (Reviewed 08/25/25 @ 12:24 by Camille Miramontes, [facility], ) Diabetes Infected sebaceous cyst Guo's cyst Right knee GERD (gastroesophageal reflux disease) Hypertension Arthritis Alcohol abuse Obesity Surgical History Surgical History (Reviewed 08/25/25 @ 12:24 by Camille Miramontes, [facility], ) History of History of tubal ligation Family History Family History (Reviewed 08/25/25 @ 12:24 by Camille Miramontes, [facility], ) Father Heart disease Mother Kidney failure Social History Social History (Reviewed 08/25/25 @ 12:24 by Camille Miramontes, [facility], ) Smoking status: Never smoker Second hand tobacco smoke exposure: No Alcohol intake: former Alcohol use details: quit drinking about one month ago 2/2 diabetes Substance use: never Substance use type: does not use Living arrangements: with family Occupation/Education: occupation Gender identity (if verbalized by the patient): Female Sexual Orientation (if Verbalized by the Patient): Straight or Heterosexual Spiritual care concerns: No Comments At time of signature, I have reviewed and agree with nursing past medical, surgical, social and family history unless otherwise noted. Please see nursing chart for further information. There is no relevant family history pertinent to the presenting complaint Exam Narrative: GENERAL: Well-appearing, well-nourished, and in no acute distress. HEAD: Normocephalic, atraumatic. EYES: EOMI. No redness or drainage. Conjunctivae normal. ENT: Mucous membranes pink and moist. NECK: Normal AROM. CHEST: No respiratory distress. EXTREMITIES: Normal range of motion. No edema. SKIN: Warm, dry. Capillary refill normal. Normal skin turgor. Patient has diffuse round, erythematous and inflamed plaques covering most of the surface of her feet and bilateral legs as well as the low back and lower abdomen. No edema, crusting, drainage noted. NEURO: No focal deficits. Alert and oriented x3. Gait steady. PSYCH: Normal affect. No signs of depression or anxiety. Course Course Level of Care: Express Care Visit Vital Signs Vital signs: Vital Signs Temperature 97.6 F 08/25/25 11:44 Pulse Rate 93 08/25/25 11:44 Respiratory Rate 18 08/25/25 11:44 Blood Pressure 131/83 08/25/25 11:44 Pulse Oximetry 100 08/25/25 11:44 Oxygen Delivery Room Air 08/25/25 11:44 Temperature 97.6 F 08/25/25 11:44 Pulse Rate 93 08/25/25 11:44 Respiratory Rate 18 08/25/25 11:44 Blood Pressure 131/83 08/25/25 11:44 Pulse Oximetry 100 08/25/25 11:44 Oxygen Delivery Room Air 08/25/25 11:44 Reviewed MDM - Skin/Abscess/Foreign Bdy MDM Narrative Medical decision making narrative: 50-year-old female patient with history of diabetes and high blood pressure presents today complaining of a one-month history of severely pruritic rash to the bilateral legs, low back and abdomen. She has previously diagnosed with psoriasis by her PCP and was treated with clobetasol which has not been helping. She was referred to Dermatology, but this visit was not covered by her insurance. States rash has spread significantly since her last PCP visit and now sandoval when she sweats. Upon exam, patient has diffuse round erythematous plaques to the lower body, consistent with psoriasis. Patient will be started on a tapering dose of prednisone. She is also complaining of a possible vaginal yeast infection. Fluconazole sent to pharmacy as well. Patient has a follow-up appointment with her PCP in 3 weeks. Recommend taking photos of her rash currently before starting the prednisone. Patient agrees with plan. Vital signs stable. Anticipatory guidance given. Differential Diagnosis Differential diagnosis: Likely abscess of skin or subcutaneous tissue, viral exanthem, dermatophytosis, urticaria, cellulitis, eczema, contact dermatitis and other (Psoriasis) Critical Care Time Critical Care Time Critical Care Time: No Discharge Plan Discharge Clinical Impression: Psoriasis, Vulvovaginal candidiasis Patient Disposition: Home Condition: Stable Instructions: Psoriasis (ED) Additional Instructions: Please take the prednisone as directed. Take the fluconazole, once now, and wants when you are finished with the prednisone to help with your yeast infection. Please follow-up with your PCP as scheduled regarding your ongoing rash. Patient Language: Syriac Prescriptions: New prednisone 10 mg tablet See Rx Instructions .ROUTE .COMPLEX Qty: 40 0RF Rx Instructions: 4 tabs daily x4 days,then 3 tabs daily x4 days,then 2 tabs daily x4 days, then 1 tab daily x4 days. fluconazole 150 mg tablet 150 mg PO WEEKLY Qty: 2 0RF No Action naproxen 500 mg tablet 500 mg PO BID PRN (Reason: pain) Qty: 30 0RF triamcinolone acetonide 0.1 % cream 1 applic topical BID 7 Days Qty: 80 0RF Rx Instructions: to rash atorvastatin 80 mg tablet allopurinol 100 mg tablet omeprazole 40 mg capsule,delayed release(DR/EC) amlodipine 10 mg tablet ferrous sulfate [FeroSul] 325 mg (65 mg iron) tablet gabapentin 300 mg capsule Trulicity 1.5 mg/0.5 mL pen injector SUBCUT Januvia 100 mg tablet 100 mg PO DAILY loratadine [Allerclear] 10 mg tablet 10 mg PO DAILY Qty: 30 0RF metformin 500 mg tablet 500 mg PO DAILY Qty: 10 0RF losartan 50 mg tablet 50 mg PO DAILY bupropion HCl 150 mg tablet sustained-release 12 hr 150 mg PO BID norgestimate-ethinyl estradiol [Sprintec (28)] 0.25-35 mg-mcg tablet 1 tablet PO DAILY naltrexone 50 mg tablet 50 mg PO DAILY furosemide 20 mg tablet 20 mg PO DAILY Follow-up/Referrals: Vimal,ALESSIA Jacobs [Primary Care Provider, Unknown] Time of Disposition: 12:22
== END 2025-08-25 12:27 | disposition home or self-care (01) ==
PROVIDERS: Emergency Provider Nurse Practitioner; PCP Physician Assistant Medical
DX: L40.9 Psoriasis, unspecified (principal); B37.31 Acute candidiasis of vulva and vagina; E11.9 Type 2 diabetes mellitus without complications; Z79.84 Long term (current) use of oral hypoglycemic drugs; I10 Essential (primary) hypertension; K21.9 Gastro-esophageal reflux disease without esophagitis; M19.90 Unspecified osteoarthritis, unspecified site; E66.9 Obesity, unspecified; Z68.30 Body mass index [BMI] 30.0-30.9, adult
CPT/HCPCS: 99213; G0463

== ENCOUNTER 2025-09-11 10:01 | Outpatient (CLI) | payer OTHER, SELFPAY ==
--- NOTE | ~2025-09-11 | MR_ITS ---
EXAMINATION: MR orbits face neck wo/w con DATE: 09/11/2025 11:49 INDICATION: Left lacrimal gland dislocation TECHNIQUE: Magnetic resonance imaging (MRI) of the brain, brainstem, and orbits was performed without and with 20 mL Multihance intravenous contrast. Sequences included sagittal T1-weighted SE, axial diffusion-weighted FS EPI, coronal T2*- weighted GRE, axial T2-weighted FLAIR Propeller, and axial T2-weighted Propeller. Small [id number] sequences of the orbits included coronal and axial T2-weighted FS FSE and T1-weighted FS FSE. Postcontrast sequences included axial, sagittal and coronal T1-weighted SE and small dxuhj-dc-trmor axial and coronal T1-weighted FS FSE. Apparent diffusion coefficient (ADC) maps were created. COMPARISON: None. FINDINGS: There are no areas of restricted diffusion to suggest acute infarction. No intracranial hemorrhage or abnormal intracranial mass lesion. There are no intraparenchymal signal abnormalities seen on the other pulse sequences. The ventricles are symmetric and normal in size. There are no abnormal extra-axial fluid collections. Flow voids are seen in the cerebral arteries on the T2- weighted sequences consistent with their expected patency. There is prolapse of the left lacrimal gland the majority of which is positioned along the anterior margin of the lateral limb of the left orbit and partial prolapse of the inferior aspect of the right lacrimal gland. The lacrimal glands and remainder of the bilateral orbits are otherwise normal. Mild mucosal thickening at the bilateral ethmoid sinuses. There are no areas of abnormal enhancement on the post contrast images. IMPRESSION: 1. 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 No abnormal masses identified. 2. Normal brain. Reviewed, dictated and finalized at location A. IMPRESSION: 1. Prolapse of the left lacrimal gland and partial prolapse of the right lacrim al gland, both of which appear otherwise normal. No abnormal masses identified. 2. Normal brain.
--- OUTSIDE RECORDS SUMMARY | 2025-09-11 10:05 | XMS_ITS | Encounter Summary ---
Author Organization [facility] Address [address] [place] [address] Care Team Providers Care Product Designer Name Role Phone Vasquez Mills MD Primary Care Provider [phone] Jessica Velazco PA-C Primary Care Provider + Reason for Visit * Reason Comments Refill Request Encounter Details Date Type Department Care Team (Late st Contact Info) Description 05/03/2020 Refill [facility] - Orth[facility] [address] [place] [phone] Edwar Rhodes MD [address] [phone] Refill Request Social History Tobacco Use Types Packs/Day Years Used Date Smoking Tobacco: Never Smokeless Tobacco: Never Comments Unknown Sex and Gender Information Value Date Recorded Sex Assigned at Not on file Legal Sex 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
--- OUTSIDE RECORDS SUMMARY | 2025-09-11 10:05 | XMS_ITS | Clinical Summary ---
Author Organization [facility] Address [address] [place] [address] Care Team Providers Care Manager Publishing Name Role Phone Jessica Velazco PA-C Primary Care Provider + Source Comments [facility],non-owned Affiliates and Associated Physician Practices is amultiple site organization consisting of ambulatory clinics and hospital sitesin [place] and [place]. This disclosure is being madepursuant to the Care Everywhere program and may not contain all information available regarding this patient. Last updated 18.[facility] Allergies No known active allergies Medications * Be aware that medications may not be up to date on this document. Alwaysverify current medications with the patient. traMADol (ULTRAM) 50 MG tablet Take 1 (one) tablet by mouth 4 times daily Active omeprazole (PRILOSEC) 40 MG capsule Take 1 (one) capsule by mouth daily before breakfast Active losartan (COZAAR) 50 MG tablet Take 1 (one) tablet by mouth once daily 6 09/30/20 19 Active buPROPion SR 12hr (WELLBUTRIN-SR) 150 MG tablet Take 1 (one) tablet by mouth once daily Active naltrexone (REVIA) 50 MG tablet Take 1 (one) tablet by mouth once daily Active methocarbamol (ROBAXIN) 500 MG tablet 07/28/20 19 Active ibuprofen (MOTRIN) 600 MG tablet Take 1 (one) tablet by mouth every 6 hours as needed Active furosemide (LASIX) 20 MG tablet Take 1 (one) tablet by mouth once daily as needed 2 09/30/20 19 Active vitamin D, ergocalciferol, (DRISDOL) 1.25 MG (57243 UT) capsule TAKE 1 CAPSULE BY MOUTH ONCE A WEEK DIRECTED 0 08/31/20 19 Active colchicine 0.6 MG tablet colchicine 0.6 mg tablet TAKE 3 TABLETS BY MOUTH ONCE DAILY FOR 1 DAY Active triamcinolone acetonide (Kenalog) injection Kenalog 10 mg/mL suspension for injection In office injection administered by the provider Active atorvastatin (LIPITOR) 40 MG tablet Take 1 (one) tablet by mouth at bedtime 05/01/20 21 Active JANUVIA 100 MG tablet Take 1 (one) tablet by mouth once daily 05/01/20 21 Active loratadine (CLARITIN) 10 MG tablet 1 (one) tablet once daily as needed Active ofloxacin (OCUFLOX) 0.3 % ophthalmic solution ofloxacin 0.3 % eye drops INSTILL 2 DROPS INTO AFFECTED EAR 4 TIMES DAILY Active acetic acid 2 % otic solution - isopropyl alcohol 70% soln 50:50 SOLN compound Instill 3 drops into both ears 2 times daily 10 mL 2 07/31/20 21 Active ciprofloxacin-dexA METHasone (CIPRODEX) 0.3-0.1 % otic suspension Instill 4 (four) drops into both ears 2 times daily Shake well before using. 7.5 mL 2 07/31/20 21 Active Additional Information Patient not taking.Reported on 10/04/2023 acetic acid (VOSOL) 2 % otic solution INSTILL 3 DROPS INTO EACH EAR TWICE DAILY 15 mL 12/18/19 22 Active Additional Information Patient not taking.Reported on 10/04/2023 amLODIPine (Norvasc) 10 MG tablet 10/04/20 22 Active allopurinol (Zyloprim) 100 MG tablet 10/04/20 22 Active metFORMIN ER 24hr (Glucophage XR) 500 MG tablet 10/04/20 22 Active lidocaine (Lidoderm) 5 % patch APPLY ONE PATCH TOPICALLY DAILY LEAVE ON MOST PAINFUL AREA FOR UP TO 12 HOURS 09/27/20 22 Active Sprintec 28 0.25-35 MG-MCG tablet 10/04/20 22 Active gabapentin (Neurontin) 300 MG capsule Take 1 (one) capsule by mouth 3 times daily 90 capsule 10 12/10/19 23 Active acetaminophen (Tylenol) 500 MG tablet Take 2 (two) tablets by mouth every 12 hours as needed for Fever or Pain Maximum allowable Acetaminophen amount = 4 Grams (4000 mg) / 24 hours. 120 tablet 05/24/20 Active Additional Information Patient not taking.Reported on 10/04/2023 cyclobenzaprine (Flexeril) 10 MG tablet Take 0.5 (one-half) tablet by mouth 3 times daily as needed for Muscle Spasms 30 tablet 10/04/20 Active methylPREDNISolone (Medrol Dosepak) 4 MG tablet Take by mouth as directed Take as directed by mouth per package instructions. 21 tablet 10/04/20 Active meloxicam (Mobic) 15 MG tabletIndications: Primary osteoarthritis of right knee,Primary osteoarthritis of left knee Take 1 tablet by mouth once daily 30 tablet 07/13/20 Active Active Problems Problem Noted Date Diagnosed Date Primary osteoarthritis of right knee 09/25/2023 Diabetic polyneuropathy asso ciated with type 2 diabetes mellitus 12/10/2022 Sciatic pain, unspecified laterality 12/10/2022 Effusion of right knee 09/18/2019 Tear of medial meniscus of right knee, current 1 11/18/2018 Chronic pain of right knee 09/18/2019 Internal derangement of right knee 09/18/2019 Social History Tobacco Use Types Packs/Day Years Used Date Smoking Tobacco: Never Smokeless Tobacco: Never Tobacco Cessation:Counseling Given: Not Answered PHQ-2 Answer Date Recorded Patient Health Questionnaire-2 Score 0 10/04/2023 Comments No Sex and Gender Information Value Date Recorded Sex Assigned at Not on file 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 Gender Identity Not on file Sexual Orientation Not on file Last Filed Vital Signs Vital Sign Reading Time Taken Comments Blood Pressure 177/76 12/10/2022 7:54 AM WASHATERIA ATTENDANT Pulse 87 12/10/2022 7:54 AM WASHATERIA ATTENDANT Temperature 36.7 C (98 F) 12/10/2022 7:54 AM WASHATERIA ATTENDANT Respiratory Rate 20 06/06/2021 9:18 AM CDT Oxygen Saturation 98% 12/10/2022 7:54 AM WASHATERIA ATTENDANT Inhaled Oxygen Concentration - - Weight 106.1 kg (234 lb) 10/04/2023 9:21 AM WASHATERIA ATTENDANT Height 162.6 cm (5' 4) 10/04/2023 9:21 AM WASHATERIA ATTENDANT Body Mass Index 40.17 10/04/2023 9:21 AM WASHATERIA ATTENDANT Plan of Treatment Health Maintenance Due Date Last Done Comments COLOGUARD (AGES 45-75) - COL ON CA SCREENING 1977 COLON MONITORING 1977 COLONOSCOPY - COLON CA SCREENING 1977 CT COLONOGRAPHY - COLON CA SCREENING 1977 Colorectal Cancer Screening 1977 FIT - COLON CA SCREENING 1977 FLEX SIG - COLON CA SCREENING 1977 MAMMOGRAM 1977 HIV SCREENING 1992 HEPATITIS C SCREENING 05/31/1995 DIABETES-SERUM CREATININE 1995 DTAP/TDAP/TD VACCINES (1 - Tdap) 1996 HEPATITIS B VACCINE (1 of 3 - 19+ 3-dose series) 1996 PNEUMOCOCCAL VACCINE (1 of 2 - PCV) 1996 PAP SMEAR 1998 DIABETES RETINOPATHY SCREENING 12/10/2022 DIABETES-FOOT EXAM WITH MONOFILAMENT 12/10/2022 DIABETES-HGB A1C 12/10/2022 DEPRESSION SCREENING 11/18/2024 10/04/2023 DIABETES - URINE PROTEIN SCREENING 11/18/2024 COVID-19 VACCINE (1 - 2023-2 5 season) 2025 INFLUENZA VACCINE (#1) 2025 ZOSTER VACCINE (1 of 2) 2027 HIB VACCINE Aged Out No longer eligi ble based on patient's age to complete this topic HPV VACCINE Aged Out No longer eligi ble based on patient's age to complete this topic MENINGOCOCCAL (Group B) VACC INE SHARED DECISION-MAKING Aged Out No longer eligibl e based on patient's age to complete this topic MENINGOCOCCAL GROUPS A/C/Y/W VACCINE Aged Out No longer eligible b ased on patient's age to complete this topic Insurance MEDICAID - [place] * Guarantor: MANDIE DURBIN Account Type Relation to Patient Date of Phone Billing Address Personal/Family 1975 [address] [place] [address] Care Teams Manager Publishing Relationship Specialty Start Date End Date Jessica Velazco PA-C [address] [place] [phone] PCP - General Physician Block Handler 01/30/23
--- OUTSIDE RECORDS SUMMARY | 2025-09-11 10:05 | XMS_ITS | Encounter Summary ---
Author Organization [facility] Address [address] [facility] [place] [address] Care Team Providers Care Market Development Trainer Name Role Phone Vasquez Mills MD Primary Care Provider [phone] Jessica Velzaco PA-C Primary Care Provider + Encounter Details Date Type Department Care Team (Late st Contact Info) Description 03/09/2022 Telephone [facility] PT [address] [place] [phone] Evi Marion, PT Social History Tobacco Use Types Packs/Day Years Used Date Smoking Tobacco: Never Smokeless Tobacco: Never Comments No Sex and Gender Information Value Date Recorded Sex Assigned at Not on file Legal Sex 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 Informed that she missed last 2 PT visits on 03/06 and 03/09/22. Called to verify/remind patient that she has a 2:30 PT visit scheduled for today. Requested patient call to inform whether she plans to keep this appt today and additional 60 minutefollow up appts on 03/13 and 03/15/22. Politely requested return call to inform if she could not keep these appts, as PT could then assistothers. documented in this encounter Plan of Treatment Not on file documented as of this encounter Visit Diagnoses Not on filedocumented in this encounter Care Teams Market Development Trainer Relationship Specialty Start Date End Date Vasquez Mills MD [address] [place] [phone] PCP - General 06/06/21 01/29/23 Jessica Velazco PA-C [address] [place] [phone] PCP - General Physician Medical Instrument Technician 01/30/23 documented as of this encounter
--- OUTSIDE RECORDS SUMMARY | 2025-09-11 10:05 | XMS_ITS | Clinical Summary ---
Author Organization [facility] Address [address] [place] [address] Care Team Providers Care Reading Coach Name Role Phone Jessica Vleazco Primary Care Provider [phone] Allergies No known active allergies Medications naproxen (NAPROSYN) 500 mg tablet Take 1 tablet (500 mg total) by mouth 2 (two) times a day with meals. 30 tablet 11/20/2018 Active cyclobenzaprine (FLEXERIL) 10 mg tablet Take 1 tablet (10 mg total) by mouth nightly as needed for muscle spasms. 12 tablet 11/20/2018 Active Surgical History Surgery Date Site/Laterality Comments SECTION Medical History Medical History Date Comments Hypertension Guo's cyst of knee, right Social History Tobacco Use Types Packs/Day Years Used Date Smoking Tobacco: Never Smokeless Tobacco: Never Alcohol Use Standard Drinks/Week Comments Yes 10 (1 standard drink = 0.6 oz pu re alcohol) Personal Safety Answer Date Recorded Have you ever been in or are you currently in a harmful physical or emotional relationship or is someone making you feel afraid or unsafe? Denies 10/28/2024 Comments No Sex and Gender Information Value Date Recorded Sex Assigned at Not on file Legal Sex Female 8:22 PM NURSING PROFESSOR Gender Identity Not on file Sexual Orientation Not on file Obstetrics History Last Filed Vital Signs Vital Sign Reading Time Taken Comments Blood Pressure 163/102 10/28/2024 5:05 PM NURSING PROFESSOR Pulse 86 10/28/2024 5:05 PM NURSING PROFESSOR Temperature 36.4 C (97.5 F) 10/28/2024 9:57 AM NURSING PROFESSOR Respiratory Rate 18 10/28/2024 5:00 PM NURSING PROFESSOR Oxygen Saturation 96% 10/28/2024 5:05 PM NURSING PROFESSOR Inhaled Oxygen Concentration - - Weight 100 kg (220 lb 7.4 oz) 03/19/2021 3:36 PM CDT Height 170.2 cm (5' 7) 10/28/2024 9:57 AM NURSING PROFESSOR Body Mass Index 34.53 02/27/2019 10:03 AM CDT Plan of Treatment Health Maintenance Due Date Last Done Comments Albumin Creatinine Ratio, Urine 1977 Breast Cancer Screening-Mammogram 1977 Cervical Cancer Screening 1977 Colon Cancer Screening-Colonoscopy 1977 Depression Screening 1977 Hemoglobin A1C 1977 Hepatitis C Screening 1977 Dilated Eye Exam 1977 Foot Exam 1977 Lipid Panel 1977 Hepatitis B Screening 1995 Regular Well Visit/Exam 18-64 1995 Covid-19 Vaccine ( season) 2025 06/14/2022, 01/29/2022, 08/09/2021 Influenza Vaccine (#1) 2025 10/04/2016, 2014 eGFR 10/28/2025 10/28/2024 DTaP/Tdap/Td Vaccine (2 - Td or Tdap) 05/28/202609/2016 Pneumococcal vaccine <65 Completed 06/14/2022, 11/2017 Procedures Procedure Name Priority Date/Time Associated Diagnosis Comments EGFR STAT 10/28/2024 10:34 AM NURSING PROFESSOR from Last 3 Months or Most Recently Relevant to Health Maintenance Results * eGFR (10/28/2024 10:34 AM NURSING PROFESSOR) eGFR >90 >=60 mL/min/1. 73 m2 Comment: Interpretive Data Reference Interval Normal >/= 90 mL/min/1.73m2 Mildly decreased* 60 - 89 mL/min/1.73m2 Mildly to moderately decreased 45 - 59 mL/min/1.73m2 Moderately to severely decreased 30 - 44 mL/min/1.73m2 Severely decreased 15 - 29 mL/min/1.73m2 Kidney Failure < 15 mL/min/1.73m2 *Relative to young adult level Estimated glomerular filtration rate is determined by the 2020 CKD-EPI equation recommended by the National Kidney Foundation (A Unifying Approach to GFR Estimation: Recommendations of the NKF-ASK Task Force on Reassessing the Inclusion of Race in Diagnosing Kidney Disease, JASN 2020). The CKD-EPI equation should not be used for patients with unstable renal function and has not been validated in children and those over 70. Current interpretive data was last reviewed 2021. Blood 10/28/2024 10:3 4 AM NURSING PROFESSOR 10/28/2024 10:36 AM NURSING PROFESSOR us Iva [facility] LAB BLOOD ORDERABLES F inal Result RADHA [address] [facility] Department [place] [address] from Last 3 Months or Most Recently Relevant to Health Maintenance Insurance [id number] [facility] Care Teams Reading Coach Relationship Specialty [place] [address] [place] [phone] PCP - General Physician Sieve Grader Tender 04/13/20
--- OUTSIDE RECORDS SUMMARY | 2025-09-11 10:05 | XMS_ITS | Encounter Summary ---
Author Organization [facility] Address [address] [place] [address] Care Team Providers Care Office Equipment Mechanic Name Role Phone Jessica Velazco PA-C Primary Care Provider + Reason for Visit * Reason Comments Refill Request Encounter Details Date Type Department Care Team (Late st Contact Info) Description 04/14/2024 Refill [facility] [address] [place] [phone] Justen Fernando MD [address] [place] [address] Refill Request Social History Tobacco Use Types Packs/Day Years Used Date Smoking Tobacco: Never Smokeless Tobacco: Never PHQ-2 Answer Date Recorded Patient Health Questionnaire-2 Score 0 10/04/2023 Comments No Sex and Gender Information Value Date Recorded Sex Assigned at Not on file Legal Sex Female 6:02 AM DICTATING MACHINE TRANSCRIBER Gender Identity Not on file Sexual Orientation Not on file documented as of this encounter Plan of Treatment Not on file documented as of this encounter Visit Diagnoses Not on filedocumented in this encounter Care Teams Office Equipment Mechanic Relationship Specialty Start Date End Date Jessica Velazco PA-C [address] [place] [phone] PCP - General Physician Satellite Technician 01/30/23 documented as of this encounter
== END 2025-09-11 10:02 | disposition home or self-care (01) ==
LOC: CHSIMG 10:03
PROVIDERS: PCP Physician Assistant Medical
DX: H04.1 Other disorders of lacrimal gland (principal)
CPT/HCPCS: 70543; A9577

== ENCOUNTER 2025-10-02 09:55 | Emergency (ER) | payer MEDICAID, SELFPAY ==
[2025-10-02 10:03] VITALS: BP 149/65; PULSE 90; RESP 16; TEMP 36.3; O2SAT 99
--- NOTE | 2025-10-02 10:10 | ED.EYEPROB ---
HPI - Eye Problem General Chief complaint: Eye Problems Stated complaint: left eye irritation patient presents to the [facility] with complaints of redness irritation significant drainage and matting to left eye that began about 3 days ago. Patient noted she is using wet washcloths and rubbing her eye as well as pulling out the drainage from inside of her eye. Patient does note the area underneath her eyelid has become dry and slightly red. Patient does note she recently had an MRI due to a mass in the left upper eyelid but denies any symptoms related to this other than feeling the mass, noted she does have it up appointment with [facility] for follow-up for removal of this mass in 3 days. denies fever, chills, body aches, cold-like symptoms. Related Data Home Medications ?Medication ?Instructions ?Recorded ?Confirmed ?Last Taken ?Type bupropion HCl 150 mg tablet,12 hr 150 mg PO BID 11/19/19 10/02/25 01/21/22 History sustained-release furosemide 20 mg tablet 20 mg PO DAILY 11/19/19 10/02/25 02/07/22 History losartan 50 mg tablet 50 mg PO DAILY 11/19/19 10/02/25 02/14/22 History naltrexone 50 mg tablet 50 mg PO DAILY 11/19/19 10/02/25 02/09/22 History norgestimate 0.25 mg-ethinyl 1 tablet PO DAILY 11/19/19 10/02/25 02/07/22 History estradiol 0.035 mg tablet (Sprintec (28)) sitagliptin phosphate 100 mg 100 mg PO DAILY 08/22/20 10/02/25 02/07/22 History tablet (Januvia) allopurinol 100 mg tablet mg 08/25/25 Unknown History amlodipine 10 mg tablet mg 08/25/25 Unknown History atorvastatin 80 mg tablet mg 08/25/25 Unknown History dulaglutide 1.5 mg/0.5 mL mg subcut 08/25/25 Unknown History subcutaneous pen injector (Trulicity) ferrous sulfate 325 mg (65 mg mg 08/25/25 Unknown History iron) tablet (FeroSul) gabapentin 300 mg capsule mg 08/25/25 Unknown History omeprazole 40 mg capsule,delayed mg 08/25/25 Unknown History release clobetasol 0.05 % topical cream topical 10/02/25 Unknown History Allergies Allergy/AdvReac Type Severity Reaction Status Date / Time No Known Allergies Allergy Unknown Verified 10/02/25 10:00 Review of Systems Constitutional: Constitutional: Reports as per HPI, Denies chills, Denies fatigue, Denies fever(s) and Denies weakness Eyes: Eyes: Reports as per HPI, Denies change in vision and Reports photophobia Comments: Redness, dryness, matting and drainage to left eye ENT: Reports as per HPI, Denies vertigo, Denies dizziness, Denies nasal congestion and Denies sore throat Cardiovascular: Cardiovascular: Reports no additional cardiovascular complaints Respiratory: Respiratory: Reports no additional respiratory complaints Gastrointestinal: Gastrointestinal: Reports no additional gastrointestinal complaints Genitourinary: Genitourinary: Reports no additional female genitourinary complaints Musculoskeletal: Musculoskeletal: Reports no additional musculoskeletal complaints Integumentary/Breasts: Skin/Breast: Reports as per HPI, Reports pruritus, Reports erythema and Denies rash Neurologic: Reports as per HPI, Denies vertigo, Denies dizziness, Reports headache(s) and Denies weakness Psychiatric: Psychiatric: Reports no additional psychiatric complaints Endocrine: Endocrine: Reports no additional endocrine complaints Hematologic/Lymphatic: Hematologic/Lymphatic: Reports no additional hematologic/lymphatic complaints Allergic/Immunologic: Allergic/Immunologic: Reports no additional allergic/immunologic complaints PMFSH Past Medical History Medical History Diabetes Infected sebaceous cyst Guo's cyst Right knee GERD (gastroesophageal reflux disease) Hypertension Arthritis Alcohol abuse Obesity Surgical History Surgical History History of History of tubal ligation Family History Family History Father Heart disease Mother Kidney failure Social History Social History Smoking status: Never smoker Second hand tobacco smoke exposure: No Alcohol intake: former Alcohol use details: quit drinking about one month ago 2/2 diabetes Substance use: never Substance use type: does not use Living arrangements: with family Occupation/Education: occupation Gender identity (if verbalized by the patient): Female Sexual Orientation (if Verbalized by the Patient): Straight or Heterosexual Spiritual care concerns: No Exam Const: General: healthy appearing and no acute distress Nutritional Appearance: well nourished Orientation/consciousness: patient oriented x3 Limitations: no limitations HENMT: Head: normal to inspection Ears: external ears normal and TM's normal bilaterally Face/Nose/Sinus: Normal external nose present and Normal nares present Face and sinus: normal facial exam and sinuses nontender Mouth: Yes Normal oral and palatal mucosa present and Yes lip normal Throat: posterior oropharynx normal Eyes: Conjunctivae: conjunctival abnormality left Pupils: Equal, round and reactive pupils present EOM: EOMs intact bilaterally Direct Ophthalmoscopy: photophobia (left eye ) Other: exudate and drainage left eye- yellow/green Neck: Neck: normal visual inspection and no lymphadenopathy Resp: Effort & Inspection: normal respiratory effort Auscultation: clear to auscultation bilaterally Cardio: Rate: regular rate Rhythm: regular rhythm Skin: General skin exam: normal color Rashes: no rashes Wounds: no wounds Neuro: General: patient oriented x3 Speech: normal speech Gait exam (Neuro): Normal gait present Psych: Mental Status: mental status grossly normal Affect: normal affect Attitude: cooperative Course Course Level of Care: Express Care Visit Vital Signs Vital signs: Vital Signs Temperature 97.4 F L 10/02/25 10:03 Pulse Rate 90 10/02/25 10:03 Respiratory Rate 16 10/02/25 10:03 Blood Pressure 149/65 H 10/02/25 10:03 Pulse Oximetry 99 10/02/25 10:03 Oxygen Delivery Room Air 10/02/25 10:03 Temperature 97.4 F L 10/02/25 10:03 Pulse Rate 90 10/02/25 10:03 Respiratory Rate 16 10/02/25 10:03 Blood Pressure 149/65 H 10/02/25 10:03 Pulse Oximetry 99 10/02/25 10:03 Oxygen Delivery Room Air 10/02/25 10:03 MDM - Eye Problem MDM Narrative Medical decision making narrative: significant conjunctivitis noted area with the redness and dryness on her I will place patient on oral antibiotics note history of orbital cellulitis The patient was evaluated by myself in the express care. History is obtained from patient who is an independent historian and physical exam was performed. Available medical records were reviewed at this time. Exam findings show no acute concerns or changes; patient is non-toxic appearing and is in no distress. Patient is appropriate for outpatient treatment and follow-up. I have evaluated and discussed social determinants of health with the patient that could potentially impact subsequent diagnosis and treatment plans. Differential diagnosis and treatment plan were discussed with the patient. Patient agrees with discussion and after shared medical decision making agrees with plan of care. All questions were answered to the patient's satisfaction. Differential Diagnosis Differential diagnosis: Likely corneal abrasion, conjunctivitis, acute iritis, hyphema, periorbital cellulitis, glaucoma, corneal ulcer and ruptured globe Medical Records Attestation: I reviewed the patient's medical records. Discharge Plan Discharge Clinical Impression: Acute bacterial conjunctivitis of left eye Patient Disposition: Home Condition: Stable Instructions: Antibiotic Form, Conjunctivitis (ED) Additional Instructions: Your exam today shows Conjunctivitis, You have been given a prescription for eye drops. Use the eye drops as instructed. If you are not better in two (2) days, you need to follow up with an valve steamer. Do not rub the eye or put anything else in the eye, this can cause abrasions (scratches) on the eye or lead to vision loss. Also it is important not to touch the tube or tip of drops to the eye, as this can cause further infection. Wash your hands very well before instilling the medication. Handwashing can help prevent the spread of disease. Follow up with PCP in 7-10 days Return to ER for problems Contact [facility] if you need an Wellness Director [] Patient Language: [place] Citizen Prescriptions: New cephalexin 500 mg capsule 500 mg PO Q12H Qty: 20 0RF tobramycin 0.3 % drops 1 drp EACH EYE Q4H 7 Days Qty: 5 0RF No Action naproxen 500 mg tablet 500 mg PO BID PRN (Reason: pain) Qty: 30 0RF atorvastatin 80 mg tablet allopurinol 100 mg tablet omeprazole 40 mg capsule,delayed release(DR/EC) amlodipine 10 mg tablet ferrous sulfate [FeroSul] 325 mg (65 mg iron) tablet gabapentin 300 mg capsule Trulicity 1.5 mg/0.5 mL pen injector SUBCUT clobetasol 0.05 % cream TOPICAL Januvia 100 mg tablet 100 mg PO DAILY loratadine [Allerclear] 10 mg tablet 10 mg PO DAILY Qty: 30 0RF metformin 500 mg tablet 500 mg PO DAILY Qty: 10 0RF losartan 50 mg tablet 50 mg PO DAILY bupropion HCl 150 mg tablet sustained-release 12 hr 150 mg PO BID norgestimate-ethinyl estradiol [Sprintec (28)] 0.25-35 mg-mcg tablet 1 tablet PO DAILY naltrexone 50 mg tablet 50 mg PO DAILY furosemide 20 mg tablet 20 mg PO DAILY Follow-up/Referrals: Vimal,ALESSIA Jacobs [Primary Care Provider, Unknown] Time of Disposition: 10:18
== END 2025-10-02 10:19 | disposition home or self-care (01) ==
PROVIDERS: Emergency Provider Nurse Practitioner Family; PCP Physician Assistant Medical
DX: H10.32 Unspecified acute conjunctivitis, left eye (principal); E11.9 Type 2 diabetes mellitus without complications; I10 Essential (primary) hypertension
CPT/HCPCS: 99213; G0463

== ENCOUNTER 2025-11-01 11:53 | Emergency (ER) | payer MEDICAID, SELFPAY ==
[2025-11-01 12:06] VITALS: BP 144/97; PULSE 91; RESP 16; TEMP 36.2; O2SAT 99
--- NOTE | 2025-11-01 12:48 | ED.URI ---
HPI - URI/Sore Throat General Chief Complaint: Upper Respiratory Infection Stated Complaint: HEAD COLD Time Seen by Provider: 11/01/25 12:30 Source: patient and RN notes reviewed Mode of arrival: ambulatory Limitations: no limitations History of Present Illness HPI Narrative: 50-year-old female presents Express Care complaining of upper respiratory symptoms for 5-6 days. Patient reports symptoms were very mild the last 5 days however today she developed worsening symptoms. Patient reports worsening sinus pressure, congestion, mucopurulent nasal drainage, cough, sore throat. Patient denies any other upper respiratory symptoms, fevers, body aches, chills, nausea, vomiting, diarrhea, chest pain, difficulty breathing, or any other symptoms. Related Data Home Medications ?Medication ?Instructions ?Recorded ?Confirmed ?Last Taken ?Type bupropion HCl 150 mg tablet,12 hr 150 mg PO BID 11/19/19 11/01/25 01/21/22 History sustained-release furosemide 20 mg tablet 20 mg PO DAILY 11/19/19 11/01/25 02/07/22 History losartan 50 mg tablet 50 mg PO DAILY 11/19/19 11/01/25 02/14/22 History naltrexone 50 mg tablet 50 mg PO DAILY 11/19/19 11/01/25 02/09/22 History norgestimate 0.25 mg-ethinyl 1 tablet PO DAILY 11/19/19 11/01/25 02/07/22 History estradiol 0.035 mg tablet (Sprintec (28)) sitagliptin phosphate 100 mg 100 mg PO DAILY 08/22/20 11/01/25 02/07/22 History tablet (Januvia) allopurinol 100 mg tablet mg 08/25/25 Unknown History amlodipine 10 mg tablet mg 08/25/25 Unknown History atorvastatin 80 mg tablet mg 08/25/25 Unknown History dulaglutide 1.5 mg/0.5 mL mg subcut 08/25/25 Unknown History subcutaneous pen injector (Trulicity) ferrous sulfate 325 mg (65 mg mg 08/25/25 Unknown History iron) tablet (FeroSul) gabapentin 300 mg capsule mg 08/25/25 Unknown History omeprazole 40 mg capsule,delayed mg 08/25/25 Unknown History release Allergies Allergy/AdvReac Type Severity Reaction Status Date / Time No Known Allergies Allergy Unknown Verified 11/01/25 12:00 Review of Systems Review of Systems: CONSTITUTIONAL: Denies fever, body aches, chills, or sweats. EYES: Denies visual changes, redness, or discharge. ENT: Denies rhinorrhea, or otalgia. Positive for congestion, mucopurulent nasal drainage, sore throat, and sinus pressure CARDIOVASCULAR: Denies chest pain, palpitations, or edema. RESPIRATORY: Positive for cough. Negative for wheezing or dyspnea. GASTROINTESTINAL: Denies abdominal pain, nausea, vomiting, or diarrhea. GENITOURINARY: Denies dysuria or hematuria. SKIN: Denies rash or itching. MUSCULOSKELETAL: Denies back pain, joint pain, or myalgia. NEUROLOGIC: Denies headache, numbness, or weakness. PSYCHIATRIC: Denies anxiety or depression. All other systems reviewed are negative, except as documented in HPI. [facility] Past Medical History Medical History Diabetes Infected sebaceous cyst Guo's cyst Right knee GERD (gastroesophageal reflux disease) Hypertension Arthritis Alcohol abuse Obesity Surgical History Surgical History History of History of tubal ligation Family History Family History Father Heart disease Mother Kidney failure Social History Social History Smoking status: Never smoker Second hand tobacco smoke exposure: No Alcohol intake: former Alcohol use details: quit drinking about one month ago 2/2 diabetes Substance use: never Substance use type: does not use Living arrangements: with family Occupation/Education: occupation Gender identity (if verbalized by the patient): Female Sexual Orientation (if Verbalized by the Patient): Straight or Heterosexual Spiritual care concerns: No Comments At the time of my signature, I reviewed and agree with the nursing past medical, surgical, social, and family history. There is no relevant family history pertinent to the patient complaint. Exam Narrative: GENERAL: This is a well-nourished, well-developed adult, in no apparent distress. They are non ill-appearing, nontoxic appearing. HEAD: normocephalic, atraumatic. EYES: Sclera clear/white. Conjunctiva normal. Vision is grossly intact. Extraocular movements intact EARS: External ears normal, auditory canals clear and without drainage, TMs normal without perforation. Hearing grossly intact. NOSE: External nose normal with no obvious nasal discharge, nasal turbinates erythematous with exudate, no rhinorrhea. Maxillary and frontal sinus tenderness to palpation. THROAT: Mucous membranes moist, posterior pharynx erythematous. Uvula midline. Postnasal drip present. NECK: Neck supple, non-tender without lymphadenopathy, masses or thyromegaly. CARDIOVASCULAR: Regular rate and rhythm without murmurs, gallops, or rubs. RESPIRATORY: Clear to auscultation. Breath sounds equal bilaterally. No wheezes, rales, or rhonchi. SKIN: warm, Dry, intact with no suspicious lesions or rash, good texture and turgor. NEURO: awake, alert, and oriented to person, place and time. There were no obvious focal neurologic abnormalities. EXTREMITIES: No joint tenderness, effusion, or edema noted. BACK: Nontender without deformity. Course Course Level of Care: Express Care Visit Vital Signs Vital signs: Vital Signs Temperature 97.2 F L 11/01/25 12:06 Pulse Rate 91 11/01/25 12:06 Respiratory Rate 16 11/01/25 12:06 Blood Pressure 144/97 H 11/01/25 12:06 Pulse Oximetry 99 11/01/25 12:06 Oxygen Delivery Room Air 11/01/25 12:06 Temperature 97.2 F L 11/01/25 12:06 Pulse Rate 91 11/01/25 12:06 Respiratory Rate 16 11/01/25 12:06 Blood Pressure 144/97 H 11/01/25 12:06 Pulse Oximetry 99 11/01/25 12:06 Oxygen Delivery Room Air 11/01/25 12:06 [facility] MDM Narrative Medical decision making narrative: Rapid COVID, flu, strep were negative. Throat culture is pending. A given patient's worsening symptoms day likely she has developed a bacterial sinusitis will treat with Augmentin. Discussed physical exam findings. Advised supportive measures and signs/symptoms to go to the ER. Pt is appropriate for outpt treatment and f/u. Differential Diagnosis Differential Diagnosis: Differential diagnostic considerations for upper respiratory infection include upper respiratory infection, croup, otitis media, sinusitis, viral infection, bronchitis, influenza, pharyngitis, strep, uvulitis. Critical Care Time Critical Care Time Critical Care Time: No Discharge Plan Discharge Clinical Impression: Sinusitis Qualifiers: Sinusitis location: unspecified location Chronicity: acute Recurrence: non-recurrent Qualified Code(s): J01.90 - Acute sinusitis, unspecified Patient Disposition: Home Condition: Stable Instructions: Antibiotic Form, Sinusitis (ED) Additional Instructions: Your rapid COVID, flu, strep were negative today. Take the antibiotics as directed and complete the course even if you start to feel better. You may use a Neti pot saline rinse 3 times a day with lukewarm distilled water Continue to take Tylenol or Motrin as needed for pain or fevers. Use a humidifier or vaporizer at night. Drink plenty of water. 8-10 glasses per day. Use flonase 2 times per day for 5 days then as needed Take mucinex 2 times per day and be sure to take with 8oz of water. Follow up with Primary provider in 3-5 days Please go to the ER if he develops any difficulty breathing, chest pain, vomiting, worsening symptoms, or any other concerns Patient Language: Danish Prescriptions: New amoxicillin-pot clavulanate 875-125 mg tablet 1 tablet PO Q12H 7 Days Qty: 14 0RF No Action atorvastatin 80 mg tablet allopurinol 100 mg tablet omeprazole 40 mg capsule,delayed release(DR/EC) amlodipine 10 mg tablet ferrous sulfate [FeroSul] 325 mg (65 mg iron) tablet gabapentin 300 mg capsule Trulicity 1.5 mg/0.5 mL pen injector SUBCUT Januvia 100 mg tablet 100 mg PO DAILY loratadine [Allerclear] 10 mg tablet 10 mg PO DAILY Qty: 30 0RF metformin 500 mg tablet 500 mg PO DAILY Qty: 10 0RF losartan 50 mg tablet 50 mg PO DAILY bupropion HCl 150 mg tablet sustained-release 12 hr 150 mg PO BID norgestimate-ethinyl estradiol [Sprintec (28)] 0.25-35 mg-mcg tablet 1 tablet PO DAILY naltrexone 50 mg tablet 50 mg PO DAILY furosemide 20 mg tablet 20 mg PO DAILY Follow-up/Referrals: Vimal,ALESSIA Jacobs [Primary Care Provider, Unknown] Stand Alone Forms: Work/School Release IP Time of Disposition: 12:46
[2025-11-01 13:01] LABS: EDCOVIDSCREEN Negative (Negative); EDINFLUASCREEN Negative (Negative); EDINFLUBSCREEN Negative (Negative); EDSTREPNEGPOS1 Negative (Negative)
== END 2025-11-01 12:50 | disposition home or self-care (01) ==
PROVIDERS: PCP Physician Assistant Medical
DX: J01.90 Acute sinusitis, unspecified (principal); Z20.822 Contact with and (suspected) exposure to COVID-19; E11.9 Type 2 diabetes mellitus without complications; Z79.84 Long term (current) use of oral hypoglycemic drugs; Z79.85 Long-term (current) use of injectable non-insulin antidiabetic drugs; I10 Essential (primary) hypertension; K21.9 Gastro-esophageal reflux disease without esophagitis; E66.9 Obesity, unspecified; Z68.31 Body mass index [BMI] 31.0-31.9, adult
CPT/HCPCS: 87081; 87426; 87804; 87880; 99213; G0463